=== PATIENT | male | born 1950 | race African-American/Black ===

== ENCOUNTER 2023-12-14 17:20 | Emergency (ER) | payer OTHER, MEDICAID ==
[~2023-12-14] VITALS: Ht 177.8 cm; Wt 65.3 kg
[2023-12-14 17:35] VITALS: BP 118/66; TEMP 97.9; O2SAT 98
[2023-12-14] MEDS ORDERED: MORPHINE SULFATE INJ 4 MG/ML DISP.SYRIN ONE (17:47)
[2023-12-14] MEDS ORDERED: ONDANSETRON HCL/PF 4 MG/2 ML VIAL ONE (17:47)
[2023-12-14 18:00] LABS: EOSINOPHILS # (AUTO) 0.1 K/uL (0.0-0.7); EOSINOPHILS % (AUTO) 2.7 % (0.0-6.0); HEMATOCRIT 33 % (39-51); HEMOGLOBIN 11.4 g/dL (13.5-17.5); LYMPHOCYTES # (AUTO) 0.5 K/uL (0.8-4.8); LYMPHOCYTES % (AUTO) 16.8 % (20.0-44.0); MEAN CORPUSCULAR HEMOGLOBIN 32 PG (26.0-33.0); MEAN CORPUSCULAR HGB CONC 35 g/dl (31.0-36.0); MEAN CORPUSCULAR VOLUME 92 fL (80-96); MONOCYTES # (AUTO) 0.3 K/uL (0.1-1.30); MONOCYTES % (AUTO) 11.2 % (2.0-12.0); NEUTROPHILS % (AUTO) 68.3 % (43.0-81.0); PLATELET COUNT (AUTO) 176 K/uL (150-450); RED BLOOD CELL COUNT(AUTO) 3.55 MIL/uL (4.5-6.0); WHITE BLOOD COUNT (AUTO) 2.9 K/uL (4.3-11.0)
[2023-12-14] MEDS: MORPHINE SULFATE INJ 2 MG/ML DISP.SYRIN IV ONE (18:00)
[2023-12-14] MEDS: ONDANSETRON HCL/PF 4 MG/2 ML VIAL IVP ONE (18:01)
[2023-12-14 18:07] LABS: CALCIUM, SERUM 9.7 mg/dL (8.5-10.1); CARBON DIOXIDE 23 mmol/L (21-32); CHLORIDE 104 mmol/L (98-107); CREATININE 1.8 mg/dL (0.6-1.3); GLUCOSE 106 mg/dL (74-106); POTASSIUM 4.7 mmol/L (3.5-5.1); SODIUM SERUM 140 mmol/L (136-145); UREA NITROGEN, BLOOD 36 mg/dL (7-18)
[2023-12-14 18:13] LABS: ALANINE AMINOTRANSFERASE 19 U/L (12-78); ALBUMIN 3.6 g/dL (3.4-5.0); ALKALINE PHOSPHATASE 43 U/L (46-116); ASPARTATE AMINOTRANSFERASE 38 U/L (15-37); BILIRUBIN,DIRECT 0.6 mg/dL (0.0-0.2); BILIRUBIN,TOTAL 1.2 mg/dL (0.2-1.0); LIPASE 37 U/L (16-77); TOTAL PROTEIN, SERUM 6.4 g/dL (6.4-8.2)
[2023-12-14 18:44] LABS: INR 1.3 (0.91-1.10); PARTIAL THROMBOPLASTIN TIME 30.2 SEC (24.3-34.3); PROTHROMBIN TIME 13.5 SECS (9.2-11.1)
[2023-12-14 20:34] LABS: APPEARANCE,URINE CLEAR (CLEAR); BILIRUBIN,URINE NEGATIVE (NEGATIVE); BLOOD, URINE NEGATIVE Ery/uL (NEGATIVE); COLOR,URINE YELLOW (YELLOW); KETONES,URINE NEGATIVE (NEGATIVE); LEUKOCYTE ESTERASE ,URINE 1+ (NEGATIVE); NITRITE, URINE NEGATIVE (NEGATIVE); PH,URINE 5.5 (5.0-8.0); PROTEIN,URINE NEGATIVE (NEGATIVE); UGLUCOSE NEGATIVE (NEGATIVE); UROBILINOGEN,URINE 0.2 EU/dL (0.2)
[2023-12-14 20:43] LABS: ADD URINE CULTURE YES; BACTERIA,URINE 1+ /HPF (None Seen); RBC,URINE 0-2 /HPF (0-2); SQUAMOUS EPITHELIAL CELL,UR Few /HPF (None Seen); WBC,URINE 21-50 /HPF (0-3); YEAST,URINE Few /HPF (None Seen)
== END 2023-12-14 21:07 | disposition short-term general hospital (02) ==
LOC: ER 17:24
DX: K70.31 Alcoholic cirrhosis of liver with ascites (principal); I10 Essential (primary) hypertension; Z59.01 Sheltered homelessness
CPT/HCPCS: 99285; 74176; 96374; 96375; 85025; 80048; 87086; 83690; 80076; 81001; 36415; 85730; J2270; J2405

== ENCOUNTER 2025-01-09 18:58 | Emergency (ER) | payer MEDICARE, OTHER ==
[~2025-01-09] VITALS: Ht 177.8 cm; Wt 68.5 kg
[2025-01-09 19:28] LABS: PLATELET COUNT (AUTO) 193 K/uL (150-450); RED BLOOD CELL COUNT(AUTO) 3.14 MIL/uL (4.5-6.0); RED CELL DISTRIBUTION WIDTH 14.8 % (11.5-15.0); WHITE BLOOD COUNT (AUTO) 6.5 K/uL (4.3-11.0)
[2025-01-09 19:35] VITALS: TEMP 98.1
[2025-01-09 19:42] LABS: SERUM AMMONIA 25 umol/L (11-32)
[2025-01-09 19:43] LABS: CALCIUM, SERUM 8.1 mg/dL (8.5-10.1); CREATININE 5.3 mg/dL (0.6-1.3); SODIUM SERUM 135 mmol/L (136-145)
[2025-01-09 19:45] LABS: INR 1.27 (0.91-1.10); UREA NITROGEN, BLOOD 85 mg/dL (7-18)
[2025-01-09 19:48] LABS: LACTIC ACID 1.2 mmol/L (0.4-2.0)
[2025-01-09 19:55] LABS: ASPARTATE AMINOTRANSFERASE 66 U/L (15-37); TOTAL PROTEIN, SERUM 6.4 g/dL (6.4-8.2)
[2025-01-09 19:56] LABS: ALCOHOL, BLOOD < 3 mg/dL (0-10)
[2025-01-09 21:26] VITALS: BP 120/81; O2SAT 96
[2025-01-09 21:41] LABS: APPEARANCE,URINE CLEAR (CLEAR); BLOOD, URINE NEGATIVE Ery/uL (NEGATIVE); LEUKOCYTE ESTERASE ,URINE TRACE (NEGATIVE); NITRITE, URINE NEGATIVE (NEGATIVE); UGLUCOSE NEGATIVE (NEGATIVE)
[2025-01-09 21:53] LABS: ADD URINE CULTURE YES; SQUAMOUS EPITHELIAL CELL,UR None Seen /HPF (None Seen)
[2025-01-09 21:57] LABS: YEAST,URINE Many /HPF (None Seen)
[2025-01-09 22:04] LABS: AMPHETAMINE, URINE NEGATIVE (NEGATIVE); BARBITURATE, URINE NEGATIVE (NEGATIVE); BENZODIAZEPINE, URINE NEGATIVE (NEGATIVE); CANNABINOID, URINE NEGATIVE (NEGATIVE); COCCAINE, URINE NEGATIVE (NEGATIVE); OPIATE, URINE NEGATIVE (NEGATIVE)
== END 2025-01-09 23:22 | disposition short-term general hospital (02) ==
LOC: ER 19:06
DX: R18.8 Other ascites (principal); N17.9 Acute kidney failure, unspecified; I10 Essential (primary) hypertension; R07.9 Chest pain, unspecified
CPT/HCPCS: 36415; 70450-TC; 71045-TC; 80048-TC; 80076-TC; 81001; 82140-TC; 83605-TC; 84443-TC; 84484-TC; 85025-TC; 85730-TC; 87086-TC; G0480

== ENCOUNTER 2025-03-09 14:35 | Inpatient (IN) | payer MEDICARE, OTHER ==
[~2025-03-09] VITALS: Ht 179.1 cm; Wt 64.9 kg
[2025-03-09] MEDS ORDERED: MORPHINE SULFATE INJ 2 MG/ML DISP.SYRIN ONE (15:18)
[2025-03-09] MEDS: MORPHINE SULFATE INJ 2 MG/ML DISP.SYRIN IV ONE (15:21)
[2025-03-09 15:26] LABS: CALCIUM, SERUM 8.0 mg/dL (8.5-10.1); CREATININE 3.5 mg/dL (0.6-1.3); SODIUM SERUM 135.0 mmol/L (136-145); UREA NITROGEN, BLOOD 52.0 mg/dL (7-18)
[2025-03-09 15:30] LABS: RED BLOOD CELL COUNT(AUTO) 4.03 MIL/uL (4.5-6.0); RED CELL DISTRIBUTION WIDTH 17.0 % (11.5-15.0); WHITE BLOOD COUNT (AUTO) 8.8 K/uL (4.3-11.0)
[2025-03-09 15:32] LABS: PLATELET COUNT (AUTO) 135 K/uL (150-450)
[2025-03-09 15:33] LABS: ASPARTATE AMINOTRANSFERASE 87.0 U/L (15-37); TOTAL PROTEIN, SERUM 6.1 g/dL (6.4-8.2)
[2025-03-09 15:35] LABS: INR 1.1 (0.91-1.10)
[2025-03-09] MEDS ORDERED: GABA300C PO (15:53)
[2025-03-09] MEDS ORDERED: POLY17PO4 PO (15:53)
[2025-03-09] MEDS ORDERED: ACET325T53 PO (15:53)
[2025-03-09] MEDS ORDERED: TAMS-12 PO (15:53)
[2025-03-09] MEDS ORDERED: LIDO30JE4 TP (15:53)
[2025-03-09] MEDS ORDERED: HYDR-4209 PO (15:53)
[2025-03-09] MEDS ORDERED: NA P133E RC (15:53)
[2025-03-09] MEDS ORDERED: MAGN400O6 PO (15:53)
[2025-03-09] MEDS ORDERED: MIDO10TA PO (15:53)
[2025-03-09] MEDS ORDERED: BISA10SU11 RC (15:53)
[2025-03-09] MEDS ORDERED: hydrALAZINE HCL IV 20 MG VIAL IV PRN (16:00)
[2025-03-09] MEDS ORDERED: LIDOCAINE 2% JEL 5 ML TUBE TP PRN (21:00)
[2025-03-09] MEDS ORDERED: BISACODYL SUPP (10 MG) 10 MG/SUPP.RECT SUPP.RECT RC PRN (21:00)
[2025-03-09] MEDS: HEPARIN SODIUM, PORCINE 5000 UNITS/1 ML VIAL SQ SCH (21:42)
[2025-03-09] MEDS: TAMSULOSIN 0.4 MG CAP.SR.24H PO SCH (21:42)
[2025-03-09] MEDS: MORPHINE SULFATE INJ 2 MG/ML DISP.SYRIN IV PRN (22:34)
[2025-03-10 04:00] VITALS: BP 105/87; TEMP 97.5; O2SAT 98
[2025-03-10 06:24] LABS: PLATELET COUNT (AUTO) 109 K/uL (150-450); RED BLOOD CELL COUNT(AUTO) 3.57 MIL/uL (4.5-6.0); RED CELL DISTRIBUTION WIDTH 16.9 % (11.5-15.0); WHITE BLOOD COUNT (AUTO) 7.9 K/uL (4.3-11.0)
[2025-03-10 06:30] LABS: ASPARTATE AMINOTRANSFERASE 66.0 U/L (15-37); CALCIUM, SERUM 7.6 mg/dL (8.5-10.1); CREATININE 3.7 mg/dL (0.6-1.3); PHOSPHORUS 4.7 mg/dL (2.5-4.9); SODIUM SERUM 133.0 mmol/L (136-145); TOTAL PROTEIN, SERUM 5.5 g/dL (6.4-8.2); UREA NITROGEN, BLOOD 52.0 mg/dL (7-18)
[2025-03-10] MEDS: GABAPENTIN 300 MG CAPSULE PO SCH (08:18)
[2025-03-10] MEDS: POLYETHYLENE GLYCOL 3350 17 GM POWD.PACK PO SCH (08:18)
[2025-03-10] MEDS: MIDODRINE HCL (5MG) 5 MG TABLET PO SCH (08:19)
[2025-03-10 12:00] VITALS: BP 119/86; TEMP 98.6; O2SAT 98
[2025-03-10 13:20] LABS: EOSINOPHILS % (MANUAL) 2 % (0-4); LYMPHOCYTES % (MANUAL) 9 % (16-48); MONOCYTES % (MANUAL) 5 % (0-11.0); NEUTROPHILS % (MANUAL) 84 (42-76); PLATELET ESTIMATE DECREASED
[2025-03-10 20:00] VITALS: BP 116/87; TEMP 97.9; O2SAT 99
[2025-03-10] MEDS: ACETAMINOPHEN 325 MG TABLET PO PRN (21:42)
[2025-03-11 04:00] VITALS: BP 120/79; TEMP 98; O2SAT 97
[2025-03-11 08:00] VITALS: BP 112/74; TEMP 100; O2SAT 96
[2025-03-11] MEDS ORDERED: LIDOCAINE 5% OINT 35.44 GM TUBE TP PRN (10:30)
[2025-03-11] MEDS: ALBUMIN 25% 25 GM in PREMIX 1 EA IV PRN (15:59)
[2025-03-11] MEDS: LIDOCAINE 2% JEL UROJET 10 ML MM PRN (19:25)
[2025-03-11 20:00] VITALS: BP 90/53; TEMP 99; O2SAT 98
[2025-03-12 03:07] LABS: HEPATITIS B SURFACE AB (QUAL) Non Reactive (.)
[2025-03-12 04:00] VITALS: BP 92/58; TEMP 99.5; O2SAT 100
[2025-03-12 06:42] LABS: CALCIUM, SERUM 7.3 mg/dL (8.5-10.1); CREATININE 3.6 mg/dL (0.6-1.3); SODIUM SERUM 133.0 mmol/L (136-145); UREA NITROGEN, BLOOD 41.0 mg/dL (7-18)
[2025-03-12 08:00] VITALS: BP 85/60; TEMP 98.8; O2SAT 97
[2025-03-12 16:00] VITALS: BP 94/56; TEMP 98.2; O2SAT 96
[2025-03-12 20:00] VITALS: BP 96/69; TEMP 98.4; O2SAT 99
[2025-03-13] MEDS: SIMETHICONE 80 MG TAB.CHEW PO PRN (02:37)
[2025-03-13 04:00] VITALS: BP 92/65; TEMP 98.1; O2SAT 98
[2025-03-13 16:00] VITALS: BP 76/55; TEMP 97.5; O2SAT 97
[2025-03-13] MEDS: MAG HYDROX/AL HYDROX/SIMETH 30 ML UDC PO ONE (17:06)
[2025-03-13 17:47] VITALS: BP 80/59
[2025-03-13 20:00] VITALS: BP 77/62; TEMP 98.4
[2025-03-13 21:30] VITALS: BP 90/60
[2025-03-14] VITALS (7 sets, daily range): BP systolic 68–115; BP diastolic 42–69; TEMP 97.6–99; O2SAT 97
[2025-03-14] MEDS: ONDANSETRON HCL/PF 4 MG/2 ML VIAL IVP PRN (10:23)
[2025-03-14] MEDS: ALBUMIN 25% 12.5 GM in PREMIX 1 EA IV ONE (14:25)
[2025-03-15 04:00] VITALS: BP 79/58; TEMP 98.2; O2SAT 99
[2025-03-15] MEDS: ALBUMIN 25% 12.5 GM in PREMIX 1 EA IV ONE (12:12)
[2025-03-15 12:16] VITALS: BP 107/62
== END 2025-03-15 16:12 | DRG 432 ==
LOC: ER 15:10 → MEDSG1 19:06
PROVIDERS: ADMIT Internal Medicine; ATTEND Nurse Practitioner Acute Care
PROC: 5A1D70Z Performance of Urinary Filtration, Intermittent, Less than 6 Hours Per Day (ICD-10-PCS; principal; 2025-03-10)
PROC: 0W9G3ZZ Drainage of Peritoneal Cavity, Percutaneous Approach (ICD-10-PCS; 2025-03-12)
DX: K74.60 Unspecified cirrhosis of liver (principal); N18.6 End stage renal disease; I12.0 Hypertensive chronic kidney disease with stage 5 chronic kidney disease or end stage renal disease; R18.8 Other ascites; E44.1 Mild protein-calorie malnutrition; E87.1 Hypo-osmolality and hyponatremia; D69.6 Thrombocytopenia, unspecified; Z99.2 Dependence on renal dialysis; E78.5 Hyperlipidemia, unspecified; I34.0 Nonrheumatic mitral (valve) insufficiency; N40.0 Benign prostatic hyperplasia without lower urinary tract symptoms; D63.8 Anemia in other chronic diseases classified elsewhere; E88.09 Other disorders of plasma-protein metabolism, not elsewhere classified; Z79.899 Other long term (current) drug therapy
CPT/HCPCS: 36415; 49083; 76700-TC; 80048-TC; 80053-TC; 80076-TC; 83735-TC; 84100-TC; 85025-TC; 85027-TC; 85730-TC; 86706; 87081-TC; 87340; 90935-TC; A4216; A4223; A6253; A6254; A6403; G0378; J1644; J2270; J2405; J3490; J7030; J7050; P9047; Q0163

== ENCOUNTER 2025-03-24 09:53 | Inpatient (IN) | payer MEDICARE, OTHER ==
[~2025-03-24] VITALS: Ht 179.1 cm; Wt 60.0 kg
[2025-03-24] VITALS (28 sets, daily range): BP systolic 84–134; BP diastolic 52–90; TEMP 97.7–98; O2SAT 97–100
[2025-03-24] MEDS: DOCUSATE SODIUM 100 MG CAPSULE PO SCH (01:00)
[~2025-03-24 09:53] MED LIST: ACET325T53 PO; BISA10SU11 RC; GABA300C PO; HYDR-4209 PO; LIDO30JE4 TP; MAGN400O6 PO; MIDO10TA PO; NA P133E RC; POLY17PO4 PO; TAMS-12 PO
[2025-03-24] MEDS ORDERED: ONDA-97 PO (10:17)
[2025-03-24] MEDS ORDERED: MIDO10TA PO (10:17)
[2025-03-24] MEDS ORDERED: HEPA50008 SQ (10:17)
[2025-03-24] MEDS: IV NS 0.9% 1,000 ML BAG IV ONE (10:48)
[2025-03-24 10:52] LABS: PLATELET COUNT (AUTO) 137 K/uL (150-450); RED BLOOD CELL COUNT(AUTO) 4.00 MIL/uL (4.5-6.0); RED CELL DISTRIBUTION WIDTH 16.0 % (11.5-15.0); WHITE BLOOD COUNT (AUTO) 17.2 K/uL (4.3-11.0)
[2025-03-24 11:03] LABS: CALCIUM, SERUM 7.8 mg/dL (8.5-10.1); CREATININE 2.9 mg/dL (0.6-1.3); INR 1.26 (0.91-1.10); SERUM AMMONIA 1 umol/L (11-32); SODIUM SERUM 129 mmol/L (136-145); UREA NITROGEN, BLOOD 40 mg/dL (7-18)
[2025-03-24 11:10] LABS: ASPARTATE AMINOTRANSFERASE 39 U/L (15-37); TOTAL PROTEIN, SERUM 5.6 g/dL (6.4-8.2)
[2025-03-24 11:22] LABS: LACTIC ACID 3.0 mmol/L (0.4-2.0)
[2025-03-24] MEDS: PIPERACILLIN /TAZOBACTAM 3.375 G in IV D5W 50 ML IV ONE (11:23)
[2025-03-24 12:06] LABS: APPEARANCE,URINE TURBID (CLEAR); BLOOD, URINE 3+ Ery/uL (NEGATIVE); LEUKOCYTE ESTERASE ,URINE 3+ (NEGATIVE); NITRITE, URINE NEGATIVE (NEGATIVE); UGLUCOSE NEGATIVE (NEGATIVE)
[2025-03-24 12:10] LABS: ADD URINE CULTURE YES; SQUAMOUS EPITHELIAL CELL,UR Rare /HPF (None Seen)
[2025-03-24] MEDS ORDERED: ONDANSETRON HCL/PF 4 MG/2 ML VIAL IVP PRN (13:30)
[2025-03-24] MEDS ORDERED: NOREPINEPHRINE 8MG/250ML RTU 250 ML IV ONE (14:12)
[2025-03-24] MEDS: NOREPINEPHRINE 8 MG in IV NS 0.9% 250 ML IV ONE (14:24)
[2025-03-24] MEDS: CEFEPIME 2 GM in IV D5W 100 ML IV SCH (15:05)
[2025-03-24] MEDS: ALBUMIN 25% 25 GM in PREMIX 1 EA IV SCH (15:35)
[2025-03-24] MEDS: NOREPINEPHRINE 8 MG in IV NS 0.9% 242 ML IV PRN (18:03)
[2025-03-25] VITALS (106 sets, daily range): BP systolic 67–112; BP diastolic 47–81; TEMP 97.8–99.6; O2SAT 93–100
[2025-03-25] MEDS: PHENYLEPHRINE 50 MG in IV NS 0.9% 245 ML IV PRN (00:15)
[2025-03-25] MEDS: PHENYLEPHRINE 10 MG/ML VIAL ONE (00:16)
[2025-03-25] MEDS: SENNOSIDES 8.6 MG TABLET PO SCH (01:03)
[2025-03-25 05:17] LABS: PLATELET COUNT (AUTO) 173 K/uL (150-450); RED BLOOD CELL COUNT(AUTO) 3.43 MIL/uL (4.5-6.0); RED CELL DISTRIBUTION WIDTH 15.3 % (11.5-15.0); WHITE BLOOD COUNT (AUTO) 18.1 K/uL (4.3-11.0)
[2025-03-25 05:33] LABS: CALCIUM, SERUM 7.9 mg/dL (8.5-10.1); CREATININE 3.4 mg/dL (0.6-1.3); PHOSPHORUS 4.3 mg/dL (2.5-4.9); SODIUM SERUM 132.0 mmol/L (136-145); UREA NITROGEN, BLOOD 48.0 mg/dL (7-18)
[2025-03-25 05:56] LABS: LACTIC ACID 3.1 mmol/L (0.4-2.0)
[2025-03-25] MEDS ORDERED: POLYETHYLENE GLYCOL 3350 17 GM POWD.PACK PO PRN (09:00)
[2025-03-25] MEDS: GABAPENTIN 300 MG CAPSULE PO SCH (09:31)
[2025-03-25] MEDS: THERAHONEY GEL 1.5 OZ TUBE TP SCH (09:31)
[2025-03-25] MEDS: MIDODRINE HCL (5MG) 5 MG TABLET PO SCH (12:40)
[2025-03-25 15:16] LABS: HIV-1/2 ANTIBODY NON REACTIVE (NONREACTIVE)
[2025-03-25] MEDS: ALBUMIN 25% 50 GM in PREMIX 1 EA IV ONE (15:26)
[2025-03-25] MEDS: TRAMADOL HCL 50 MG TABLET PO PRN (15:36)
[2025-03-25] MEDS: LACTULOSE 10 G/15 ML UDC (PYXIS) PO SCH (16:10)
[2025-03-25] MEDS: HYDROMORPHONE 1 MG/1 ML DISP.SYRIN IV ONE (17:11)
[2025-03-25] MEDS: TAMSULOSIN 0.4 MG CAP.SR.24H PO SCH (21:44)
[2025-03-26] VITALS (96 sets, daily range): BP systolic 57–126; BP diastolic 44–92; TEMP 98–99.8; O2SAT 92–100
[2025-03-26 07:50] LABS: PLATELET COUNT (AUTO) 131 K/uL (150-450); RED BLOOD CELL COUNT(AUTO) 3.79 MIL/uL (4.5-6.0); RED CELL DISTRIBUTION WIDTH 15.2 % (11.5-15.0); WHITE BLOOD COUNT (AUTO) 18.9 K/uL (4.3-11.0)
[2025-03-26 07:55] LABS: ASPARTATE AMINOTRANSFERASE 26.0 U/L (15-37); CALCIUM, SERUM 7.9 mg/dL (8.5-10.1); CREATININE 1.6 mg/dL (0.6-1.3); SODIUM SERUM 133.0 mmol/L (136-145); TOTAL PROTEIN, SERUM 5.7 g/dL (6.4-8.2); UREA NITROGEN, BLOOD 17.0 mg/dL (7-18)
[2025-03-26 07:56] LABS: LACTIC ACID 1.3 mmol/L (0.4-2.0)
[2025-03-26 07:57] LABS: SERUM AMMONIA 49.0 umol/L (11-32)
[2025-03-26] MEDS: HYDROCORTISONE SOD SUCCINATE 100 MG/2 ML VIAL IV SCH (12:35)
[2025-03-26] MEDS: RIFAXIMIN 550 MG TABLET PO SCH (17:51)
[2025-03-26] MEDS: MEROPENEM 1 G in IV NS 0.9% 100 ML IV SCH (17:54)
[2025-03-27] VITALS (92 sets, daily range): BP systolic 69–128; BP diastolic 51–94; TEMP 98.3–98.8; O2SAT 78–100
[2025-03-27 04:08] LABS: PLATELET COUNT (AUTO) 118 K/uL (150-450); RED BLOOD CELL COUNT(AUTO) 3.49 MIL/uL (4.5-6.0); RED CELL DISTRIBUTION WIDTH 15.7 % (11.5-15.0); WHITE BLOOD COUNT (AUTO) 18.2 K/uL (4.3-11.0)
[2025-03-27 04:17] LABS: CALCIUM, SERUM 7.9 mg/dL (8.5-10.1); CREATININE 2.7 mg/dL (0.6-1.3); SODIUM SERUM 136 mmol/L (136-145); UREA NITROGEN, BLOOD 34 mg/dL (7-18)
[2025-03-27 05:27] LABS: LYMPHOCYTES % (MANUAL) 1 % (16-48); MONOCYTES % (MANUAL) 10 % (0-11.0); NEUTROPHILS % (MANUAL) 89 (42-76); PLATELET ESTIMATE ADEQUATE
[2025-03-27] MEDS: HYDROCORTISONE SOD SUCCINATE 100 MG/2 ML VIAL IV SCH (10:50)
[2025-03-27] MEDS: NEPRO VAN 237 ML CAN PO SCH (16:02)
[2025-03-27] MEDS: ALBUMIN 25% 25 GM in PREMIX 1 EA IV PRN (18:40)
[2025-03-28] VITALS (72 sets, daily range): BP systolic 74–123; BP diastolic 51–99; TEMP 97.6–98; O2SAT 75–100
[2025-03-28 04:37] LABS: CALCIUM, SERUM 8.3 mg/dL (8.5-10.1); CREATININE 2.1 mg/dL (0.6-1.3); SODIUM SERUM 138.0 mmol/L (136-145); UREA NITROGEN, BLOOD 27.0 mg/dL (7-18)
[2025-03-28 04:49] LABS: PLATELET COUNT (AUTO) 85 K/uL (150-450); RED BLOOD CELL COUNT(AUTO) 3.35 MIL/uL (4.5-6.0); RED CELL DISTRIBUTION WIDTH 15.0 % (11.5-15.0); WHITE BLOOD COUNT (AUTO) 21.5 K/uL (4.3-11.0)
[2025-03-28 05:18] LABS: LYMPHOCYTES % (MANUAL) 1 % (16-48); MONOCYTES % (MANUAL) 3 % (0-11.0); NEUTROPHILS % (MANUAL) 96 (42-76)
[2025-03-28 05:19] LABS: PLATELET ESTIMATE DECREASED
[2025-03-28] MEDS: HYDROCORTISONE SOD SUCCINATE 100 MG/2 ML VIAL IV SCH (20:15)
[2025-03-29] VITALS (92 sets, daily range): BP systolic 77–119; BP diastolic 52–83; TEMP 97.7–98; O2SAT 81–100
[2025-03-29 04:57] LABS: CALCIUM, SERUM 8.0 mg/dL (8.5-10.1); CREATININE 2.7 mg/dL (0.6-1.3); PLATELET COUNT (AUTO) 106 K/uL (150-450); RED BLOOD CELL COUNT(AUTO) 3.27 MIL/uL (4.5-6.0); RED CELL DISTRIBUTION WIDTH 15.2 % (11.5-15.0); SODIUM SERUM 138.0 mmol/L (136-145); UREA NITROGEN, BLOOD 44.0 mg/dL (7-18); WHITE BLOOD COUNT (AUTO) 23.9 K/uL (4.3-11.0)
[2025-03-29 05:36] LABS: LYMPHOCYTES % (MANUAL) 2 % (16-48); MONOCYTES % (MANUAL) 8 % (0-11.0); NEUTROPHILS % (MANUAL) 90 (42-76); PLATELET ESTIMATE DECREASED
[2025-03-29 11:09] LABS: *HCV QUANTITATION 1480000 IU/mL (.); *HCV log10 6.170 (.)
[2025-03-30] VITALS (90 sets, daily range): BP systolic 75–112; BP diastolic 52–80; TEMP 97–98; O2SAT 93–100
[2025-03-30 05:00] LABS: PLATELET COUNT (AUTO) 92 K/uL (150-450); RED BLOOD CELL COUNT(AUTO) 3.09 MIL/uL (4.5-6.0); RED CELL DISTRIBUTION WIDTH 15.1 % (11.5-15.0); WHITE BLOOD COUNT (AUTO) 20.7 K/uL (4.3-11.0)
[2025-03-30 05:14] LABS: CALCIUM, SERUM 8.3 mg/dL (8.5-10.1); CREATININE 1.9 mg/dL (0.6-1.3); SODIUM SERUM 142.0 mmol/L (136-145); UREA NITROGEN, BLOOD 30.0 mg/dL (7-18)
[2025-03-30] MEDS: POTASSIUM CL. PREMIX PERIPHER. 50 ML IV SCH (06:20)
[2025-03-30 06:32] LABS: LYMPHOCYTES % (MANUAL) 3 % (16-48); MONOCYTES % (MANUAL) 7 % (0-11.0); NEUTROPHILS % (MANUAL) 90 (42-76); PLATELET ESTIMATE DECREASED
[2025-03-30] MEDS: HYDROCORTISONE SOD SUCCINATE 100 MG/2 ML VIAL IV SCH (09:23)
[2025-03-30] MEDS: POTASSIUM CHLORIDE 20 MEQ TAB.PRT.SR PO SCH (10:20)
[2025-03-30 16:36] LABS: APPEARANCE,URINE CLEAR (CLEAR); BLOOD, URINE 2+ Ery/uL (NEGATIVE); LEUKOCYTE ESTERASE ,URINE 1+ (NEGATIVE); NITRITE, URINE NEGATIVE (NEGATIVE); UGLUCOSE NEGATIVE (NEGATIVE)
[2025-03-30 17:22] LABS: ADD URINE CULTURE YES; YEAST,URINE Moderate /HPF (None Seen)
[2025-03-31] VITALS (28 sets, daily range): BP systolic 92–117; BP diastolic 66–83; TEMP 97–97.6; O2SAT 96–100
[2025-03-31 05:10] LABS: ASPARTATE AMINOTRANSFERASE 69.0 U/L (15-37); CALCIUM, SERUM 8.4 mg/dL (8.5-10.1); CREATININE 2.8 mg/dL (0.6-1.3); PHOSPHORUS 3.8 mg/dL (2.5-4.9); SODIUM SERUM 139.0 mmol/L (136-145); TOTAL PROTEIN, SERUM 5.1 g/dL (6.4-8.2); UREA NITROGEN, BLOOD 44.0 mg/dL (7-18)
[2025-03-31 05:24] LABS: WHITE BLOOD COUNT (AUTO) 18.4 K/uL (4.3-11.0)
[2025-03-31 05:37] LABS: PLATELET COUNT (AUTO) 102 K/uL (150-450); RED BLOOD CELL COUNT(AUTO) 3.27 MIL/uL (4.5-6.0); RED CELL DISTRIBUTION WIDTH 15.3 % (11.5-15.0)
[2025-03-31] MEDS: ALBUMIN 25% 50 GM in PREMIX 1 EA IV ONE (15:04)
[2025-03-31] MEDS: ALBUMIN 25% 12.5 GM/50 ML BOTTLE IV STA (15:05)
[2025-03-31 22:48] LABS: PROTEIN, BODY FLUID 2.2 G/DL
[2025-04-01] VITALS (9 sets, daily range): BP systolic 80–123; BP diastolic 58–78; TEMP 97.5–98.2; O2SAT 97–100
[2025-04-01 02:01] LABS: WBC, BODY FLUID 66 /cu. mm. (0-200)
[2025-04-01 02:11] LABS: TOTAL VOLUME,BODY FLUID 7200 mL
[2025-04-01 02:28] LABS: APPEARANCE,SPUN,BODY FLUID CLEAR (CLEAR)
[2025-04-01 06:43] LABS: MONOCYTES,BODY FLUID 3 %
[2025-04-01 06:46] LABS: PLATELET COUNT (AUTO) 104 K/uL (150-450); RED BLOOD CELL COUNT(AUTO) 3.09 MIL/uL (4.5-6.0); RED CELL DISTRIBUTION WIDTH 15.4 % (11.5-15.0); WHITE BLOOD COUNT (AUTO) 12.5 K/uL (4.3-11.0)
[2025-04-01 07:22] LABS: CALCIUM, SERUM 8.6 mg/dL (8.5-10.1); CREATININE 2.1 mg/dL (0.6-1.3); SODIUM SERUM 144.0 mmol/L (136-145); UREA NITROGEN, BLOOD 32.0 mg/dL (7-18)
[2025-04-01] MEDS: Z GUARD REMEDY 4 OZ OINT TP PRN (09:07)
[2025-04-01] MEDS: FLUCONAZOLE (100 MG) 100 MG TABLET PO SCH (09:08)
[2025-04-02] VITALS: BP 112/75; TEMP 98; O2SAT 98
[2025-04-02 08:00] VITALS: BP 87/68; TEMP 98.1; O2SAT 98
[2025-04-02] MEDS: DIGOXIN INJ 0.5 MG/2 ML AMPUL IV SCH (09:39)
[2025-04-02 17:41] VITALS: BP 94/66; TEMP 98.2; O2SAT 97
[2025-04-02 19:33] LABS: PLATELET COUNT (AUTO) 88 K/uL (150-450); RED BLOOD CELL COUNT(AUTO) 3.00 MIL/uL (4.5-6.0); RED CELL DISTRIBUTION WIDTH 15.5 % (11.5-15.0); WHITE BLOOD COUNT (AUTO) 9.0 K/uL (4.3-11.0)
[2025-04-02 20:00] VITALS: BP 95/58; TEMP 98.2; O2SAT 99
[2025-04-02 21:13] LABS: EOSINOPHILS % (MANUAL) 1 % (0-4); LYMPHOCYTES % (MANUAL) 3 % (16-48); MONOCYTES % (MANUAL) 9 % (0-11.0); NEUTROPHILS % (MANUAL) 87 (42-76); PLATELET ESTIMATE DECREASED
[2025-04-03] MEDS: MIDODRINE HCL (5MG) 5 MG TABLET PO ONE (00:38)
[2025-04-03] MEDS: ALBUMIN 25% 12.5 GM/50 ML BOTTLE IV ONE (00:46)
[2025-04-03 02:15] VITALS: BP 94/70
[2025-04-03 08:00] VITALS: BP 87/62; TEMP 97.5; O2SAT 99
[2025-04-03] MEDS: LACTULOSE 20 G/30 ML UDC PO SCH (08:27)
[2025-04-03 12:07] VITALS: BP 80/59
[2025-04-03] MEDS: DIGOXIN 0.25 MG TABLET PO SCH (12:07)
== END 2025-04-03 15:44 | DRG 871 ==
LOC: ER 09:55 → ICU 16:11 → TELE 03-31 17:27 → MED 04-01 08:17
PROVIDERS: ADMIT Internal Medicine; ATTEND Nurse Practitioner Acute Care
PROC: 02HV33Z Insertion of Infusion Device into Superior Vena Cava, Percutaneous Approach (ICD-10-PCS; principal; 2025-03-24)
PROC: BF45ZZZ Ultrasonography of Liver (ICD-10-PCS; 2025-03-25)
PROC: 0W9G3ZZ Drainage of Peritoneal Cavity, Percutaneous Approach (ICD-10-PCS; 2025-03-25)
PROC: 5A1D70Z Performance of Urinary Filtration, Intermittent, Less than 6 Hours Per Day (ICD-10-PCS; 2025-03-25)
PROC: 0W9G3ZX Drainage of Peritoneal Cavity, Percutaneous Approach, Diagnostic (ICD-10-PCS; 2025-03-31)
PROC: BF45ZZZ Ultrasonography of Liver (ICD-10-PCS; 2025-03-31)
DX: A41.51 Sepsis due to Escherichia coli [E. coli] (principal); E43 Unspecified severe protein-calorie malnutrition; L89.153 Pressure ulcer of sacral region, stage 3; L89.223 Pressure ulcer of left hip, stage 3; L89.213 Pressure ulcer of right hip, stage 3; N18.6 End stage renal disease; R65.21 Severe sepsis with septic shock; I12.0 Hypertensive chronic kidney disease with stage 5 chronic kidney disease or end stage renal disease; E87.1 Hypo-osmolality and hyponatremia; R18.8 Other ascites; G93.40 Encephalopathy, unspecified; K76.6 Portal hypertension; E87.20 Acidosis, unspecified; R64 Cachexia; Z16.12 Extended spectrum beta lactamase (ESBL) resistance; B37.49 Other urogenital candidiasis; K74.60 Unspecified cirrhosis of liver; Z20.822 Contact with and (suspected) exposure to COVID-19; E78.5 Hyperlipidemia, unspecified; I34.0 Nonrheumatic mitral (valve) insufficiency; B18.2 Chronic viral hepatitis C; N40.0 Benign prostatic hyperplasia without lower urinary tract symptoms; Z79.899 Other long term (current) drug therapy; Z99.2 Dependence on renal dialysis; Z79.01 Long term (current) use of anticoagulants; Z90.49 Acquired absence of other specified parts of digestive tract; Z87.891 Personal history of nicotine dependence; K72.90 Hepatic failure, unspecified without coma; D69.6 Thrombocytopenia, unspecified; E88.09 Other disorders of plasma-protein metabolism, not elsewhere classified; K42.9 Umbilical hernia without obstruction or gangrene; K57.30 Diverticulosis of large intestine without perforation or abscess without bleeding; F32.A Depression, unspecified; D63.8 Anemia in other chronic diseases classified elsewhere; I48.0 Paroxysmal atrial fibrillation; L85.3 Xerosis cutis; L89.621 Pressure ulcer of left heel, stage 1; B96.89 Other specified bacterial agents as the cause of diseases classified elsewhere; L98.9 Disorder of the skin and subcutaneous tissue, unspecified
CPT/HCPCS: 36415; 36569; 49083; 71045-TC; 76705-TC; 80048-TC; 80053-TC; 80076-TC; 81001; 82105; 82140-TC; 82533; 82962-TC; 83605-TC; 83690-TC; 83735-TC; 84100-TC; 84484-TC; 85025-TC; 85027-TC; 85730-TC; 86803; 87040-TC; 87070-TC; 87081-TC; 87086-TC; 87186-TC; 87522; 87806; 88104-TC; 88305-TC; 88312-TC; 89051-TC; 90935-TC; 93307-TC; 97110-TC; 97116-TC; 97530-TC; 97535-TC; A4216; A4223; A6213; G0378; J0692; J1160; J1171; J1720; J2185; J2543; J3480; J7030; J7050; J7060; P9047

== ENCOUNTER 2025-04-19 19:56 | Inpatient (IN) | payer MEDICARE, OTHER ==
[~2025-04-19] VITALS: Ht 179.1 cm; Wt 61.2 kg
[~2025-04-19 19:56] MED LIST changes: +HEPA50008 SQ; -LIDO30JE4 TP; +ONDA-97 PO
[2025-04-19 22:00] LABS: PLATELET COUNT (AUTO) 151 K/uL (150-450); RED BLOOD CELL COUNT(AUTO) 3.14 MIL/uL (4.5-6.0); RED CELL DISTRIBUTION WIDTH 16.0 % (11.5-15.0); WHITE BLOOD COUNT (AUTO) 10.4 K/uL (4.3-11.0)
[2025-04-19 22:09] LABS: APPEARANCE,URINE TURBID (CLEAR); BLOOD, URINE 3+ Ery/uL (NEGATIVE); LEUKOCYTE ESTERASE ,URINE 3+ (NEGATIVE); NITRITE, URINE NEGATIVE (NEGATIVE); UGLUCOSE NEGATIVE (NEGATIVE)
[2025-04-19 22:14] LABS: INR 1.26 (0.91-1.10)
[2025-04-19 22:15] LABS: ADD URINE CULTURE YES
[2025-04-19 22:15] LABS: CALCIUM, SERUM 7.7 mg/dL (8.5-10.1); CREATININE 2.6 mg/dL (0.6-1.3); SODIUM SERUM 139 mmol/L (136-145); UREA NITROGEN, BLOOD 39 mg/dL (7-18)
[2025-04-19 22:16] LABS: SQUAMOUS EPITHELIAL CELL,UR Many /HPF (None Seen); YEAST,URINE Many /HPF (None Seen)
[2025-04-19 22:17] LABS: CALCIUM OXALATE CRYSTALS,UR Few /HPF (None Seen)
[2025-04-19 22:21] LABS: ASPARTATE AMINOTRANSFERASE 39 U/L (15-37); TOTAL PROTEIN, SERUM 5.6 g/dL (6.4-8.2)
[2025-04-19] MEDS ORDERED: LEVOFLOXACIN 750 MG /D5W 150ML 150 ML IV ONE (22:39)
[2025-04-19] MEDS: LEVOFLOXACIN 750 MG /D5W 150ML PIGGYBACK IV ONE (22:41)
[2025-04-19] MEDS ORDERED: ACETAMINOPHEN 325 MG TABLET PO PRN (23:00)
[2025-04-19] MEDS ORDERED: MAG HYDROX/AL HYDROX/SIMETH 30 ML UDC PO PRN (23:00)
[2025-04-19] MEDS ORDERED: Z GUARD REMEDY 4 OZ OINT TP PRN (23:00)
[2025-04-19] MEDS ORDERED: POLYETHYLENE GLYCOL 3350 17 GM POWD.PACK PO PRN (23:00)
[2025-04-19] MEDS ORDERED: ONDANSETRON HCL/PF 4 MG/2 ML VIAL IVP PRN (23:00)
[2025-04-19] MEDS ORDERED: HYDROCODONE/APAP 5/325MG TABLET PO PRN (23:00)
[2025-04-19] MEDS ORDERED: MAGNESIUM HYDROXIDE 30 ML UDC PO PRN (23:00)
[2025-04-20] VITALS (7 sets, daily range): BP systolic 84–130; BP diastolic 28–86; TEMP 97.3–98.4; O2SAT 97–100
[2025-04-20] MEDS ORDERED: MEROPENEM 500 MG VIAL IV ONE (02:29)
[2025-04-20] MEDS ORDERED: FUROSEMIDE 40 MG/4 ML VIAL ONE (03:02)
[2025-04-20] MEDS ORDERED: ALBUMIN 25% 50 ML IV ONE (03:07)
[2025-04-20] MEDS: FUROSEMIDE 40 MG/4 ML VIAL IV ONE (03:14)
[2025-04-20] MEDS: MEROPENEM 500 MG in IV NS 0.9% 50 ML IV ONE (03:14)
[2025-04-20] MEDS: ALBUMIN 25% 12.5 GM/50 ML BOTTLE IV ONE (03:15)
[2025-04-20] MEDS ORDERED: MEROPENEM 500 MG in IV NS 0.9% 50 ML IV SCH (05:00)
[2025-04-20 06:57] LABS: PLATELET COUNT (AUTO) 145 K/uL (150-450); RED BLOOD CELL COUNT(AUTO) 3.03 MIL/uL (4.5-6.0); RED CELL DISTRIBUTION WIDTH 15.9 % (11.5-15.0); WHITE BLOOD COUNT (AUTO) 7.5 K/uL (4.3-11.0)
[2025-04-20 07:20] LABS: ASPARTATE AMINOTRANSFERASE 33.0 U/L (15-37); CALCIUM, SERUM 7.8 mg/dL (8.5-10.1); CREATININE 2.6 mg/dL (0.6-1.3); PHOSPHORUS 3.7 mg/dL (2.5-4.9); SODIUM SERUM 140.0 mmol/L (136-145); TOTAL PROTEIN, SERUM 5.6 g/dL (6.4-8.2); UREA NITROGEN, BLOOD 39.0 mg/dL (7-18)
[2025-04-20 07:33] LABS: SERUM AMMONIA 13.0 umol/L (11-32)
[2025-04-20] MEDS: PANTOPRAZOLE 40 MG VIAL IV SCH (08:10)
[2025-04-20] MEDS: HEPARIN SODIUM, PORCINE 5000 UNITS/1 ML VIAL SQ SCH (09:00)
[2025-04-20] MEDS: LACTULOSE 10 G/15 ML UDC (PYXIS) PO SCH (09:08)
[2025-04-20] MEDS: GABAPENTIN 300 MG CAPSULE PO SCH (09:08)
[2025-04-20] MEDS: RIFAXIMIN 550 MG TABLET PO SCH (09:08)
[2025-04-20] MEDS: MIDODRINE HCL (5MG) 5 MG TABLET PO SCH (09:09)
[2025-04-20] MEDS ORDERED: ASCO500T10 PO (09:56)
[2025-04-20] MEDS ORDERED: MULT-754 PO (09:56)
[2025-04-20] MEDS ORDERED: NUT.237L67 PO (09:57)
[2025-04-20] MEDS ORDERED: AMIN30LI25 PO (09:57)
[2025-04-20] MEDS ORDERED: MELA5TAB PO (09:57)
[2025-04-20] MEDS: TAMSULOSIN 0.4 MG CAP.SR.24H PO SCH (22:53)
[2025-04-21] VITALS: BP 102/76; TEMP 98.1; O2SAT 100
[2025-04-21 00:17] VITALS: BP 102/76; TEMP 98.1; O2SAT 100
[2025-04-21] MEDS: BISACODYL SUPP (10 MG) 10 MG/SUPP.RECT SUPP.RECT RC PRN (01:01)
[2025-04-21] MEDS: LACTULOSE 10 G/15 ML UDC (PYXIS) PR ONE (01:30)
[2025-04-21] MEDS: MEROPENEM 500 MG in IV NS 0.9% 50 ML IV SCH (03:34)
[2025-04-21 04:00] VITALS: BP 101/66; TEMP 97.7; O2SAT 99
[2025-04-21 04:10] VITALS: BP 101/66; TEMP 97.7; O2SAT 99
[2025-04-21 07:49] LABS: PLATELET COUNT (AUTO) 123 K/uL (150-450); RED BLOOD CELL COUNT(AUTO) 2.95 MIL/uL (4.5-6.0); RED CELL DISTRIBUTION WIDTH 16.3 % (11.5-15.0); WHITE BLOOD COUNT (AUTO) 7.7 K/uL (4.3-11.0)
[2025-04-21 08:00] VITALS: BP_SYST 108; BP_SYST 91; BP_DIAS 63; BP_DIAS 74; TEMP 98; TEMP 98.2; O2SAT 96; O2SAT 99
[2025-04-21 08:22] LABS: CALCIUM, SERUM 7.8 mg/dL (8.5-10.1); CREATININE 2.4 mg/dL (0.6-1.3); PHOSPHORUS 3.5 mg/dL (2.5-4.9); SODIUM SERUM 139.0 mmol/L (136-145); UREA NITROGEN, BLOOD 30.0 mg/dL (7-18)
[2025-04-21 09:48] LABS: IRON, SERUM 15 ug/dl (50-175)
[2025-04-21 12:27] LABS: OCCULT BLOOD STOOL POSITIVE (NEGATIVE)
[2025-04-21 12:28] LABS: OCCULT BLOOD STOOL NEGATIVE (NEGATIVE)
[2025-04-21 12:28] LABS: OCCULT BLOOD STOOL NEGATIVE (NEGATIVE)
[2025-04-21] MEDS: ACETAMINOPHEN 325 MG TABLET PO PRN (14:08)
[2025-04-21] MEDS: EPOETIN ALFA (10,000 UNIT) 10,000 UNIT/ML VIAL SQ SCH (15:14)
[2025-04-21 20:00] VITALS: BP_SYST 86; BP_SYST 90; BP_DIAS 60; BP_DIAS 75; TEMP 97.9; O2SAT 98
[2025-04-21] MEDS: ALBUMIN 25% 12.5 GM in PREMIX 1 EA IV PRN (20:58)
[2025-04-22] VITALS (9 sets, daily range): BP systolic 87–114; BP diastolic 60–86; TEMP 97.3–98.2; O2SAT 96–100
[2025-04-22] MEDS: ALBUMIN 25% 12.5 GM in PREMIX 1 EA IV ONE (02:44)
[2025-04-22 07:10] LABS: PLATELET COUNT (AUTO) 143 K/uL (150-450); RED BLOOD CELL COUNT(AUTO) 3.17 MIL/uL (4.5-6.0); RED CELL DISTRIBUTION WIDTH 16.1 % (11.5-15.0); WHITE BLOOD COUNT (AUTO) 5.9 K/uL (4.3-11.0)
[2025-04-22 07:16] LABS: CALCIUM, SERUM 7.5 mg/dL (8.5-10.1); CREATININE 2.7 mg/dL (0.6-1.3); PHOSPHORUS 3.4 mg/dL (2.5-4.9); SODIUM SERUM 140.0 mmol/L (136-145); UREA NITROGEN, BLOOD 36.0 mg/dL (7-18)
[2025-04-22] MEDS: THERAHONEY GEL 1.5 OZ TUBE TP SCH (09:30)
[2025-04-23] VITALS: BP 91/72; TEMP 98.4; O2SAT 98
[2025-04-23 04:00] VITALS: BP 90/60; TEMP 98.8; O2SAT 98
[2025-04-23 08:00] VITALS: BP 88/68; TEMP 98.2; O2SAT 100
[2025-04-23] MEDS: PANTOPRAZOLE 40 MG TABLET.DR PO SCH (09:49)
[2025-04-23 17:17] VITALS: BP 98/75
== END 2025-04-23 18:53 | DRG 698 ==
LOC: ER 20:00 → MED 04-20 00:24 → TELE 04-20 01:30
PROVIDERS: ADMIT Nurse Practitioner Acute Care
PROC: 5A1D70Z Performance of Urinary Filtration, Intermittent, Less than 6 Hours Per Day (ICD-10-PCS; 2025-04-20)
PROC: 0W9G30Z Drainage of Peritoneal Cavity with Drainage Device, Percutaneous Approach (ICD-10-PCS; principal; 2025-04-21)
PROC: BF45ZZZ Ultrasonography of Liver (ICD-10-PCS; 2025-04-21)
DX: T83.511A Infection and inflammatory reaction due to indwelling urethral catheter, initial encounter (principal); E43 Unspecified severe protein-calorie malnutrition; N18.6 End stage renal disease; R18.8 Other ascites; I12.0 Hypertensive chronic kidney disease with stage 5 chronic kidney disease or end stage renal disease; R64 Cachexia; Z16.12 Extended spectrum beta lactamase (ESBL) resistance; Z68.1 Body mass index [BMI] 19.9 or less, adult; K74.60 Unspecified cirrhosis of liver; N39.0 Urinary tract infection, site not specified; I95.89 Other hypotension; Y84.6 Urinary catheterization as the cause of abnormal reaction of the patient, or of later complication, without mention of misadventure at the time of the procedure; Y92.129 Unspecified place in nursing home as the place of occurrence of the external cause; L89.122 Pressure ulcer of left upper back, stage 2; L89.152 Pressure ulcer of sacral region, stage 2; L98.9 Disorder of the skin and subcutaneous tissue, unspecified; N40.0 Benign prostatic hyperplasia without lower urinary tract symptoms; B96.20 Unspecified Escherichia coli [E. coli] as the cause of diseases classified elsewhere; D63.1 Anemia in chronic kidney disease; E78.5 Hyperlipidemia, unspecified; E87.70 Fluid overload, unspecified; E88.09 Other disorders of plasma-protein metabolism, not elsewhere classified; I34.0 Nonrheumatic mitral (valve) insufficiency; I48.0 Paroxysmal atrial fibrillation; I77.810 Thoracic aortic ectasia; K42.9 Umbilical hernia without obstruction or gangrene; W05.0XXA Fall from non-moving wheelchair, initial encounter; Y92.9 Unspecified place or not applicable; Z87.440 Personal history of urinary (tract) infections; Z79.899 Other long term (current) drug therapy; B19.20 Unspecified viral hepatitis C without hepatic coma; Z88.0 Allergy status to penicillin; Z99.2 Dependence on renal dialysis; F10.90 Alcohol use, unspecified, uncomplicated; Y90.9 Presence of alcohol in blood, level not specified; Z79.01 Long term (current) use of anticoagulants
CPT/HCPCS: 36415; 71045-TC; 75989; 80048-TC; 80053-TC; 80076-TC; 81001; 82140-TC; 82272-TC; 82607-TC; 82728-TC; 83540-TC; 83690-TC; 83735-TC; 84100-TC; 84484-TC; 85025-TC; 85730-TC; 86850-TC; 87040-TC; 87086-TC; 87186-TC; 90935-TC; A4216; A4223; G0378; J0885; J1644; J1938; J1956; J2185; J2470; J7030; J7050; P9047

== ENCOUNTER 2025-04-30 18:17 | Inpatient (IN) | payer MEDICARE, OTHER ==
[~2025-04-30] VITALS: Ht 172.7 cm; Wt 55.8 kg
[~2025-04-30 18:17] MED LIST changes: +AMIN30LI25 PO; +ASCO500T10 PO; +ERTA1VIA4 IV; -HEPA50008 SQ; -HYDR-4209 PO; +MELA5TAB PO; +MULT-754 PO; +NUT.237L67 PO
[2025-04-30] MEDS ORDERED: MIDODRINE HCL (5MG) 5 MG TABLET ONE (19:04)
[2025-04-30] MEDS: MIDODRINE HCL (5MG) 5 MG TABLET PO ONE (19:13)
[2025-04-30] MEDS: IV NS 0.9% 500 ML BAG IV ONE (19:13)
[2025-04-30 19:42] LABS: PLATELET COUNT (AUTO) 118 K/uL (150-450); RED BLOOD CELL COUNT(AUTO) 3.56 MIL/uL (4.5-6.0); RED CELL DISTRIBUTION WIDTH 16.9 % (11.5-15.0); WHITE BLOOD COUNT (AUTO) 9.4 K/uL (4.3-11.0)
[2025-04-30 19:49] LABS: APPEARANCE,URINE CLOUDY (CLEAR); BLOOD, URINE 2+ Ery/uL (NEGATIVE); LEUKOCYTE ESTERASE ,URINE 2+ (NEGATIVE); NITRITE, URINE NEGATIVE (NEGATIVE); UGLUCOSE NEGATIVE (NEGATIVE)
[2025-04-30 19:55] LABS: INR 1.24 (0.91-1.10)
[2025-04-30 19:56] LABS: LACTIC ACID 1.4 mmol/L (0.4-2.0)
[2025-04-30 20:01] LABS: CALCIUM, SERUM 7.2 mg/dL (8.5-10.1); CREATININE 2.2 mg/dL (0.6-1.3); SODIUM SERUM 137.0 mmol/L (136-145); UREA NITROGEN, BLOOD 0.0 mg/dL (7-18)
[2025-04-30 20:08] LABS: ASPARTATE AMINOTRANSFERASE 51.0 U/L (15-37); TOTAL PROTEIN, SERUM 5.0 g/dL (6.4-8.2)
[2025-04-30 20:18] LABS: YEAST,URINE Many /HPF (None Seen)
[2025-04-30 20:26] LABS: ADD URINE CULTURE YES; SQUAMOUS EPITHELIAL CELL,UR Many /HPF (None Seen)
[2025-04-30 21:25] VITALS: BP 104/77; TEMP 97.9; O2SAT 95
[2025-04-30] MEDS ORDERED: ONDANSETRON HCL/PF 4 MG/2 ML VIAL IVP PRN (21:30)
[2025-04-30] MEDS ORDERED: MAG HYDROX/AL HYDROX/SIMETH 30 ML UDC PO PRN (21:30)
[2025-04-30] MEDS ORDERED: MAGNESIUM HYDROXIDE 30 ML UDC PO PRN (21:30)
[2025-04-30] MEDS ORDERED: PANT40TA49 PO (21:55)
[2025-04-30] MEDS ORDERED: HYDR-3972 PO (21:55)
[2025-04-30] MEDS ORDERED: LACT10SO29 PO (21:55)
[2025-04-30] MEDS ORDERED: RIFA550T PO (21:56)
[2025-04-30] MEDS: LEVOFLOXACIN 750 MG /D5W 150ML 150 ML IV ONE (22:28)
[2025-05-01] VITALS (22 sets, daily range): BP systolic 83–104; BP diastolic 63–82; TEMP 97.7–98.8; O2SAT 95–100
[2025-05-01] MEDS ORDERED: MEROPENEM 500MG/NS 50 ML PB IV ONE (02:52)
[2025-05-01] MEDS: MEROPENEM 500 MG in IV NS 0.9% 50 ML IV ONE (02:56)
[2025-05-01 07:48] LABS: PLATELET COUNT (AUTO) 126 K/uL (150-450); RED BLOOD CELL COUNT(AUTO) 3.50 MIL/uL (4.5-6.0); RED CELL DISTRIBUTION WIDTH 17.0 % (11.5-15.0); WHITE BLOOD COUNT (AUTO) 8.5 K/uL (4.3-11.0)
[2025-05-01 07:50] LABS: SERUM AMMONIA 28.0 umol/L (11-32)
[2025-05-01 08:09] LABS: CALCIUM, SERUM 7.6 mg/dL (8.5-10.1); CREATININE 2.4 mg/dL (0.6-1.3); PHOSPHORUS 4.1 mg/dL (2.5-4.9); SODIUM SERUM 138.0 mmol/L (136-145); UREA NITROGEN, BLOOD 35.0 mg/dL (7-18)
[2025-05-01] MEDS ORDERED: EPOE1VIA6 SQ (08:12)
[2025-05-01] MEDS ORDERED: NALO4SPR NS (08:12)
[2025-05-01] MEDS ORDERED: ACET325T53 PO (08:12)
[2025-05-01] MEDS: PANTOPRAZOLE 40 MG TABLET.DR PO SCH (08:48)
[2025-05-01] MEDS: MIDODRINE HCL (5MG) 5 MG TABLET PO SCH (08:49)
[2025-05-01] MEDS: THERAHONEY GEL 1.5 OZ TUBE TP SCH (10:35)
[2025-05-01] MEDS ORDERED: ALBUMIN 25% 12.5 GM in PREMIX 1 EA IV ONE (16:00)
[2025-05-01] MEDS: ACETAMINOPHEN 325 MG TABLET PO PRN (22:03)
[2025-05-01] MEDS: MEROPENEM 500 MG in IV NS 0.9% 50 ML IV SCH (23:16)
[2025-05-02] VITALS (21 sets, daily range): BP systolic 78–102; BP diastolic 56–76; TEMP 97.5–98.7; O2SAT 92–100
[2025-05-02 04:52] LABS: PLATELET COUNT (AUTO) 152 K/uL (150-450); RED BLOOD CELL COUNT(AUTO) 3.64 MIL/uL (4.5-6.0); RED CELL DISTRIBUTION WIDTH 16.8 % (11.5-15.0); WHITE BLOOD COUNT (AUTO) 11.0 K/uL (4.3-11.0)
[2025-05-02 05:14] LABS: ASPARTATE AMINOTRANSFERASE 52.0 U/L (15-37); CALCIUM, SERUM 7.6 mg/dL (8.5-10.1); CREATININE 2.4 mg/dL (0.6-1.3); NT-PRO BNP 1248.0 pg/mL (0-125); PHOSPHORUS 4.3 mg/dL (2.5-4.9); SODIUM SERUM 135.0 mmol/L (136-145); TOTAL PROTEIN, SERUM 5.0 g/dL (6.4-8.2); UREA NITROGEN, BLOOD 43.0 mg/dL (7-18)
[2025-05-02] MEDS: LACTULOSE 10 G/15 ML UDC (PYXIS) PO SCH (08:22)
[2025-05-02] MEDS: RIFAXIMIN 550 MG TABLET PO SCH (08:23)
[2025-05-02] MEDS ORDERED: PANTOPRAZOLE 40 MG TABLET.DR PO SCH (09:00)
[2025-05-02] MEDS ORDERED: MIDODRINE HCL (5MG) 5 MG TABLET PO SCH (09:00)
[2025-05-02] MEDS ORDERED: ALBUMIN 25% 12.5 GM/50 ML BOTTLE IV ONE (13:30)
[2025-05-02] MEDS ORDERED: ALBUMIN 25% 25 GM in PREMIX 1 EA IV ONE (14:00)
[2025-05-02] MEDS: ALBUMIN 25% 50 GM in PREMIX 1 EA IV ONE (14:26)
[2025-05-02] MEDS: TAMSULOSIN 0.4 MG CAP.SR.24H PO SCH (21:21)
[2025-05-03] VITALS: BP 133/98; TEMP 97.6; O2SAT 98
[2025-05-03 04:00] VITALS: BP 128/61; TEMP 97.9; O2SAT 98
[2025-05-03 07:26] LABS: PLATELET COUNT (AUTO) 136 K/uL (150-450); RED BLOOD CELL COUNT(AUTO) 3.52 MIL/uL (4.5-6.0); RED CELL DISTRIBUTION WIDTH 17.5 % (11.5-15.0); WHITE BLOOD COUNT (AUTO) 8.1 K/uL (4.3-11.0)
[2025-05-03 07:37] LABS: CALCIUM, SERUM 8.0 mg/dL (8.5-10.1); CREATININE 2.7 mg/dL (0.6-1.3); PHOSPHORUS 4.8 mg/dL (2.5-4.9); SODIUM SERUM 139.0 mmol/L (136-145); UREA NITROGEN, BLOOD 45.0 mg/dL (7-18)
[2025-05-03 08:00] VITALS: BP 90/67; TEMP 98.4; O2SAT 100
[2025-05-03] MEDS: ALBUMIN 25% 25 GM in PREMIX 1 EA IV PRN (10:53)
[2025-05-03 12:00] VITALS: BP 93/77; TEMP 97.6; O2SAT 99
[2025-05-03] MEDS ORDERED: CEFTRIAXONE 1GM BAG (ER ONLY) 1 GM/50 ML PIGGYBACK IV ONE (15:30)
[2025-05-03 16:00] VITALS: BP 91/70; TEMP 98.2; O2SAT 99
[2025-05-03] MEDS: CEFTRIAXONE 1 G in IV D5W 50 ML IV ONE (17:09)
[2025-05-03 20:00] VITALS: BP 86/63; TEMP 98.6; O2SAT 100
[2025-05-03] MEDS: FLUCONAZOLE (100 MG) 100 MG TABLET PO SCH (20:02)
[2025-05-04] VITALS: BP 97/69; O2SAT 97
[2025-05-04 04:00] VITALS: BP 91/79; TEMP 98.4; O2SAT 98
[2025-05-04 07:04] LABS: CALCIUM, SERUM 7.9 mg/dL (8.5-10.1); CREATININE 2.3 mg/dL (0.6-1.3); SODIUM SERUM 140.0 mmol/L (136-145); UREA NITROGEN, BLOOD 32.0 mg/dL (7-18)
[2025-05-04 07:12] LABS: PLATELET COUNT (AUTO) 106 K/uL (150-450); RED BLOOD CELL COUNT(AUTO) 3.82 MIL/uL (4.5-6.0); RED CELL DISTRIBUTION WIDTH 17.8 % (11.5-15.0); WHITE BLOOD COUNT (AUTO) 8.3 K/uL (4.3-11.0)
[2025-05-04 08:00] VITALS: BP 80/50; TEMP 97.7; O2SAT 99
[2025-05-04] MEDS: METRONIDAZOLE 500MG/ NS 100ML 500 MG in PREMIX 1 EA IV SCH (12:29)
[2025-05-04] MEDS: VANCOMYCIN HCL 125 MG CAPSULE PO SCH (12:29)
[2025-05-04 16:00] VITALS: BP 90/75; TEMP 97.9; O2SAT 99
[2025-05-04 20:00] VITALS: BP 91/71; TEMP 99.2; O2SAT 100
[2025-05-05 04:00] VITALS: BP 82/68; TEMP 97.5; O2SAT 100
[2025-05-05 08:00] VITALS: BP 86/64; TEMP 97.9; O2SAT 95
[2025-05-05 08:17] LABS: PLATELET COUNT (AUTO) 108 K/uL (150-450); RED BLOOD CELL COUNT(AUTO) 3.99 MIL/uL (4.5-6.0); RED CELL DISTRIBUTION WIDTH 18.1 % (11.5-15.0); WHITE BLOOD COUNT (AUTO) 8.2 K/uL (4.3-11.0)
[2025-05-05 09:00] LABS: CALCIUM, SERUM 7.9 mg/dL (8.5-10.1); CREATININE 2.9 mg/dL (0.6-1.3); PHOSPHORUS 4.7 mg/dL (2.5-4.9); SODIUM SERUM 133.0 mmol/L (136-145); UREA NITROGEN, BLOOD 40.0 mg/dL (7-18)
[2025-05-05 09:22] VITALS: BP 86/64; TEMP 97.9; O2SAT 95
[2025-05-05] MEDS ORDERED: METR500T PO (10:10)
[2025-05-05] MEDS ORDERED: FLUC100T8 PO (10:10)
[2025-05-05] MEDS ORDERED: VANC125C11 PO (10:10)
[2025-05-05 16:02] VITALS: BP 90/62; TEMP 98.1; O2SAT 99
[2025-05-05 16:13] VITALS: BP 90/62
[2025-05-05] MEDS ORDERED: METRONIDAZOLE 500 MG TABLET PO SCH (21:00)
== END 2025-05-05 17:00 | DRG 432 ==
LOC: ER 18:30 → TELE1 20:55 → ICU 05-01 15:55 → TELE1 05-02 18:30 → MEDSG1 05-04 09:12
PROVIDERS: ATTEND Nurse Practitioner Family
PROC: 5A1D70Z Performance of Urinary Filtration, Intermittent, Less than 6 Hours Per Day (ICD-10-PCS; principal; 2025-05-02)
PROC: 0W9G3ZZ Drainage of Peritoneal Cavity, Percutaneous Approach (ICD-10-PCS; 2025-05-02)
DX: K70.31 Alcoholic cirrhosis of liver with ascites (principal); E43 Unspecified severe protein-calorie malnutrition; L89.153 Pressure ulcer of sacral region, stage 3; L89.323 Pressure ulcer of left buttock, stage 3; L89.313 Pressure ulcer of right buttock, stage 3; N18.6 End stage renal disease; A04.72 Enterocolitis due to Clostridium difficile, not specified as recurrent; L89.122 Pressure ulcer of left upper back, stage 2; R64 Cachexia; L89.626 Pressure-induced deep tissue damage of left heel; I12.0 Hypertensive chronic kidney disease with stage 5 chronic kidney disease or end stage renal disease; T83.511A Infection and inflammatory reaction due to indwelling urethral catheter, initial encounter; Z99.2 Dependence on renal dialysis; D63.8 Anemia in other chronic diseases classified elsewhere; E11.22 Type 2 diabetes mellitus with diabetic chronic kidney disease; F10.21 Alcohol dependence, in remission; B37.49 Other urogenital candidiasis; Z68.1 Body mass index [BMI] 19.9 or less, adult; I47.10 Supraventricular tachycardia, unspecified; E88.09 Other disorders of plasma-protein metabolism, not elsewhere classified; I48.0 Paroxysmal atrial fibrillation; Y84.6 Urinary catheterization as the cause of abnormal reaction of the patient, or of later complication, without mention of misadventure at the time of the procedure; Y92.129 Unspecified place in nursing home as the place of occurrence of the external cause; K80.20 Calculus of gallbladder without cholecystitis without obstruction; E78.5 Hyperlipidemia, unspecified; K42.9 Umbilical hernia without obstruction or gangrene; N40.1 Benign prostatic hyperplasia with lower urinary tract symptoms; Z88.0 Allergy status to penicillin; E11.51 Type 2 diabetes mellitus with diabetic peripheral angiopathy without gangrene; E87.70 Fluid overload, unspecified; I95.89 Other hypotension; Z86.19 Personal history of other infectious and parasitic diseases; M79.672 Pain in left foot; M79.671 Pain in right foot; K57.30 Diverticulosis of large intestine without perforation or abscess without bleeding; L98.8 Other specified disorders of the skin and subcutaneous tissue; E83.89 Other disorders of mineral metabolism
CPT/HCPCS: 36415; 49083; 71045-TC; 80048-TC; 80053-TC; 80076-TC; 81001; 82140-TC; 82533; 83605-TC; 83690-TC; 83735-TC; 83880; 84100-TC; 84484-TC; 85025-TC; 85730-TC; 87040-TC; 87070-TC; 87075-TC; 87081-TC; 87086-TC; 88112-TC; 88305-TC; 90935-TC; 93307-TC; 97110-TC; 97530-TC; A4216; A4223; G0378; J0696; J1956; J2185; J7030; J7040; J7050; J7060; P9047

== ENCOUNTER 2025-05-22 13:28 | Inpatient (IN) | payer MEDICARE, OTHER ==
[~2025-05-22] VITALS: Ht 172.7 cm; Wt 50.0 kg
[~2025-05-22 13:28] MED LIST changes: -AMIN30LI25 PO; -ASCO500T10 PO; +EPOE1VIA6 SQ; -ERTA1VIA4 IV; +FLUC100T8 PO; +HYDR-3972 PO; +LACT10SO29 PO; -MELA5TAB PO; +METR500T PO; -MULT-754 PO; +NALO4SPR NS; -NUT.237L67 PO; -ONDA-97 PO; +PANT40TA49 PO; +PERM60CR4 TP; +RIFA550T PO; +VANC125C11 PO
[2025-05-22 14:27] LABS: RED BLOOD CELL COUNT(AUTO) 4.31 MIL/uL (4.5-6.0); RED CELL DISTRIBUTION WIDTH 20.1 % (11.5-15.0); WHITE BLOOD COUNT (AUTO) 12.7 K/uL (4.3-11.0)
[2025-05-22 14:30] LABS: PLATELET COUNT (AUTO) 69 K/uL (150-450)
[2025-05-22 14:35] LABS: CALCIUM, SERUM 7.5 mg/dL (8.5-10.1); CREATININE 3.5 mg/dL (0.6-1.3); SODIUM SERUM 131.0 mmol/L (136-145); UREA NITROGEN, BLOOD 41.0 mg/dL (7-18)
[2025-05-22] MEDS ORDERED: ONDANSETRON HCL/PF 4 MG/2 ML VIAL ONE (14:39)
[2025-05-22] MEDS ORDERED: MORPHINE SULFATE INJ 4 MG/ML DISP.SYRIN ONE (14:40)
[2025-05-22 14:43] LABS: ASPARTATE AMINOTRANSFERASE 52.0 U/L (15-37); TOTAL PROTEIN, SERUM 5.6 g/dL (6.4-8.2)
[2025-05-22] MEDS: ONDANSETRON HCL/PF 4 MG/2 ML VIAL IVP ONE (14:45)
[2025-05-22] MEDS: IV NS 0.9% 500 ML BAG IV ONE (14:46)
[2025-05-22] MEDS: MORPHINE SULFATE INJ 2 MG/ML DISP.SYRIN IV ONE (14:46)
[2025-05-22] MEDS ORDERED: FLAGYL/NS RTU 500 MG/100 ML PIGGYBACK IV ONE (15:00)
[2025-05-22] MEDS: IV NS 0.9% 1,000 ML BAG IV ONE (15:25)
[2025-05-22] MEDS: METRONIDAZOLE 500MG/ NS 100ML 500 MG in PREMIX 1 EA IV ONE (15:27)
[2025-05-22 16:02] LABS: APPEARANCE,URINE CLOUDY (CLEAR)
[2025-05-22 16:03] LABS: BLOOD, URINE 3+ Ery/uL (NEGATIVE); UGLUCOSE NEGATIVE (NEGATIVE)
[2025-05-22 16:04] LABS: LEUKOCYTE ESTERASE ,URINE 3+ (NEGATIVE); NITRITE, URINE NEGATIVE (NEGATIVE)
[2025-05-22 16:23] LABS: LACTIC ACID 3.0 mmol/L (0.4-2.0)
[2025-05-22 16:25] LABS: ADD URINE CULTURE YES; SQUAMOUS EPITHELIAL CELL,UR 0-2 /HPF (None Seen)
[2025-05-22 16:29] LABS: BAND % (MANUAL) 1 % (0.0-5.0); LYMPHOCYTES % (MANUAL) 11 % (16-48); MONOCYTES % (MANUAL) 4 % (0-11.0); NEUTROPHILS % (MANUAL) 84 (42-76); PLATELET ESTIMATE DECREASED
[2025-05-22] MEDS ORDERED: Z GUARD REMEDY 4 OZ OINT TP PRN (16:30)
[2025-05-22] MEDS ORDERED: MAGNESIUM HYDROXIDE 30 ML UDC PO PRN ×2 (16:30)
[2025-05-22] MEDS: CIPROFLOXACIN IV RTU 400 MG in PREMIX 1 EA IV SCH (16:30)
[2025-05-22] MEDS ORDERED: HYDROCODONE/APAP 5/325MG TABLET PO PRN (16:30)
[2025-05-22] MEDS ORDERED: ACETAMINOPHEN 325 MG TABLET PO PRN ×2 (16:30)
[2025-05-22] MEDS ORDERED: BISACODYL SUPP (10 MG) 10 MG/SUPP.RECT SUPP.RECT RC PRN (16:30)
[2025-05-22] MEDS ORDERED: ONDANSETRON HCL/PF 4 MG/2 ML VIAL IVP PRN (16:30)
[2025-05-22] MEDS ORDERED: NALOXONE HCL 4 MG SPRAY NS PRN (16:30)
[2025-05-22] MEDS ORDERED: NA PHOS,M-B/NA PHOS,DI-BA 1 EA ENEMA RC PRN (16:30)
[2025-05-22] MEDS ORDERED: MAG HYDROX/AL HYDROX/SIMETH 30 ML UDC PO PRN (16:30)
[2025-05-22] MEDS: MIDODRINE HCL (5MG) 5 MG TABLET PO SCH (17:55)
[2025-05-22] MEDS: LACTULOSE 10 G/15 ML UDC (PYXIS) PO SCH (17:55)
[2025-05-22] MEDS: GABAPENTIN 300 MG CAPSULE PO SCH (17:55)
[2025-05-22] MEDS: CEFTRIAXONE 1 G in IV D5W 50 ML IV SCH (20:05)
[2025-05-22] MEDS: TAMSULOSIN 0.4 MG CAP.SR.24H PO SCH (22:38)
[2025-05-22] MEDS: METRONIDAZOLE 500MG/ NS 100ML 500 MG in PREMIX 1 EA IV SCH (23:09)
[2025-05-23 07:34] LABS: PLATELET COUNT (AUTO) 66 K/uL (150-450); RED BLOOD CELL COUNT(AUTO) 3.80 MIL/uL (4.5-6.0); RED CELL DISTRIBUTION WIDTH 19.8 % (11.5-15.0); WHITE BLOOD COUNT (AUTO) 11.7 K/uL (4.3-11.0)
[2025-05-23 07:49] LABS: CALCIUM, SERUM 7.6 mg/dL (8.5-10.1); CREATININE 3.6 mg/dL (0.6-1.3); PHOSPHORUS 5.8 mg/dL (2.5-4.9); SODIUM SERUM 133.0 mmol/L (136-145); UREA NITROGEN, BLOOD 41.0 mg/dL (7-18)
[2025-05-23] MEDS: POLYETHYLENE GLYCOL 3350 17 GM POWD.PACK PO SCH (09:22)
[2025-05-23] MEDS: PANTOPRAZOLE 40 MG TABLET.DR PO SCH (09:22)
[2025-05-23] MEDS: RIFAXIMIN 550 MG TABLET PO SCH (09:22)
[2025-05-23 09:51] VITALS: BP 101/81; TEMP 97.7; O2SAT 100
[2025-05-23 11:28] LABS: INR 2.4 (0.91-1.10)
[2025-05-23 12:27] LABS: BASOPHILS % (MANUAL) 0 % (0.0-2.0); EOSINOPHILS % (MANUAL) 0 % (0-4); LYMPHOCYTES % (MANUAL) 5 % (16-48); MONOCYTES % (MANUAL) 6 % (0-11.0); NEUTROPHILS % (MANUAL) 89 (42-76); PLATELET ESTIMATE DECREASED
[2025-05-23] MEDS: ALBUMIN 25% 12.5 GM in PREMIX 1 EA IV PRN (15:10)
[2025-05-23 16:00] VITALS: BP 89/68; TEMP 97.7; O2SAT 96
[2025-05-23] MEDS: ALBUMIN 25% 12.5 GM in PREMIX 1 EA IV ONE (16:11)
[2025-05-23 16:57] LABS: APPEARANCE,SPUN,BODY FLUID CLEAR (CLEAR); TOTAL VOLUME,BODY FLUID 10400 mL
[2025-05-23 16:58] LABS: WBC, BODY FLUID 146 /cu. mm. (0-200)
[2025-05-23 18:04] LABS: PROTEIN, BODY FLUID 2.2 G/DL
[2025-05-23 18:54] LABS: MACROPHAGES, BODY FLUID 0; MONOCYTES,BODY FLUID 2 %
[2025-05-23 20:00] VITALS: BP 99/78; TEMP 97.3; O2SAT 96
[2025-05-23] MEDS ORDERED: ALBUMIN 25% 100 ML IV ONE (20:21)
[2025-05-23] MEDS: ALBUMIN 25% 25 GM in PREMIX 1 EA IV PRN (20:30)
[2025-05-24] VITALS (13 sets, daily range): BP systolic 76–95; BP diastolic 64–74; TEMP 97.1–98.1; O2SAT 90–100
[2025-05-24] MEDS ORDERED: ALBUMIN 25% 100 ML IV ONE (04:39)
[2025-05-24] MEDS: ALBUMIN 25% 25 GM in PREMIX 1 EA IV ONE (05:43)
[2025-05-24 08:16] LABS: CALCIUM, SERUM 7.3 mg/dL (8.5-10.1); CREATININE 3.4 mg/dL (0.6-1.3); SODIUM SERUM 134.0 mmol/L (136-145); UREA NITROGEN, BLOOD 38.0 mg/dL (7-18)
[2025-05-24 08:28] LABS: INR 1.88 (0.91-1.10)
[2025-05-24 08:30] LABS: RED BLOOD CELL COUNT(AUTO) 3.50 MIL/uL (4.5-6.0); RED CELL DISTRIBUTION WIDTH 20.0 % (11.5-15.0); WHITE BLOOD COUNT (AUTO) 12.4 K/uL (4.3-11.0)
[2025-05-24 08:37] LABS: PLATELET COUNT (AUTO) 45 K/uL (150-450)
[2025-05-24 09:54] LABS: LYMPHOCYTES % (MANUAL) 1 % (16-48); MONOCYTES % (MANUAL) 4 % (0-11.0); NEUTROPHILS % (MANUAL) 95 (42-76); PLATELET ESTIMATE DECREASED
[2025-05-25 07:00] VITALS: BP 137/77; TEMP 97.3; O2SAT 97
[2025-05-25] MEDS: THERAHONEY GEL 1.5 OZ TUBE TP SCH (08:32)
[2025-05-25] MEDS: LACTULOSE 20 G/30 ML UDC PO SCH (08:49)
[2025-05-25 15:00] VITALS: BP 92/73; TEMP 97.5; O2SAT 92
[2025-05-25 20:00] VITALS: BP 94/67; TEMP 97.9; O2SAT 95
[2025-05-26 09:14] VITALS: BP 88/70; TEMP 97.5; O2SAT 96
[2025-05-26] MEDS: EPOETIN ALFA (10,000 UNIT) 10,000 UNIT/ML VIAL SQ SCH (15:00)
[2025-05-26] MEDS ORDERED: NEPRO VAN 237 ML CAN PO PRN (18:30)
[2025-05-26] MEDS ORDERED: DOSING PER PHARMACY-GENTAMICIN IV XX PRN (20:00)
[2025-05-26] MEDS: GENTAMICIN 120 MG in IV D5W 100 ML IV ONE (21:38)
[2025-05-26] MEDS ORDERED: ALTEPLASE 1 VIAL ONE (21:43)
[2025-05-26] MEDS ORDERED: WATER FOR INJECTION STERILE IV ONE (21:50)
[2025-05-26] MEDS ORDERED: ALTEPLASE IV ONE (21:50)
[2025-05-26] MEDS: ALTEPLASE CATHFLO 2 MG/VIAL XX ONE (22:02)
[2025-05-27 07:00] VITALS: TEMP 98.1; O2SAT 100
[2025-05-27 07:35] VITALS: BP 80/60; TEMP 98.1; O2SAT 100
[2025-05-27 08:44] VITALS: BP 93/56; TEMP 98.1; O2SAT 100
[2025-05-27 12:27] LABS: RED BLOOD CELL COUNT(AUTO) 3.87 MIL/uL (4.5-6.0); RED CELL DISTRIBUTION WIDTH 20.0 % (11.5-15.0); WHITE BLOOD COUNT (AUTO) 14.0 K/uL (4.3-11.0)
[2025-05-27 12:36] LABS: PLATELET COUNT (AUTO) 40 K/uL (150-450)
[2025-05-27 12:50] LABS: CALCIUM, SERUM 7.3 mg/dL (8.5-10.1); CREATININE 3.3 mg/dL (0.6-1.3); SODIUM SERUM 134.0 mmol/L (136-145); UREA NITROGEN, BLOOD 35.0 mg/dL (7-18)
[2025-05-27 16:00] VITALS: BP 124/104; TEMP 97.3; O2SAT 96
[2025-05-27 16:22] LABS: LYMPHOCYTES % (MANUAL) 3 % (16-48); MONOCYTES % (MANUAL) 8 % (0-11.0); NEUTROPHILS % (MANUAL) 89 (42-76); PLATELET ESTIMATE DECREASED
[2025-05-27 16:45] VITALS: BP 120/60; TEMP 97.3; O2SAT 96
[2025-05-27 22:06] VITALS: BP 99/69; TEMP 99.1; O2SAT 98
[2025-05-28 08:00] VITALS: BP 88/48; TEMP 98.1; O2SAT 100
[2025-05-28 10:34] LABS: PLATELET COUNT (AUTO) 54 K/uL (150-450); RED BLOOD CELL COUNT(AUTO) 4.14 MIL/uL (4.5-6.0); RED CELL DISTRIBUTION WIDTH 20.5 % (11.5-15.0); WHITE BLOOD COUNT (AUTO) 8.9 K/uL (4.3-11.0)
[2025-05-28 10:41] LABS: CALCIUM, SERUM 7.6 mg/dL (8.5-10.1); CREATININE 3.8 mg/dL (0.6-1.3); SODIUM SERUM 134.0 mmol/L (136-145); UREA NITROGEN, BLOOD 42.0 mg/dL (7-18)
[2025-05-28 11:51] LABS: LYMPHOCYTES % (MANUAL) 5 % (16-48); MONOCYTES % (MANUAL) 11 % (0-11.0); NEUTROPHILS % (MANUAL) 84 (42-76); PLATELET ESTIMATE DECREASED
[2025-05-28] MEDS ORDERED: LACT10SO4 PO (12:27)
[2025-05-28] MEDS ORDERED: GENT40VI2 IV (12:27)
[2025-05-28] MEDS ORDERED: NUT.237L67 PO (12:27)
[2025-05-28 12:28] LABS: IRON, SERUM 28.0 ug/dl (50-175)
[2025-05-28 12:40] LABS: FIBRINOGEN ACTIVITY 135.0 Mg/dL (213-485); INR 2.09 (0.91-1.10)
[2025-05-28 13:17] LABS: RHEUMATOID FACTOR SCREEN NEGATIVE (NEGATIVE)
[2025-05-28 16:09] VITALS: BP 92/74; TEMP 98.1; O2SAT 92
[2025-05-28 16:49] VITALS: BP 94/46
[2025-05-28] MEDS: GENTAMICIN 80 MG in IV D5W 50 ML IV PRN (17:45)
[2025-05-29 07:11] LABS: HIV-1/2 ANTIBODY NON REACTIVE (NONREACTIVE)
[2025-05-29 08:07] LABS: FOLIC ACID 13.5 ng/mL (>3.0); HEPATITIS B CORE AB, TOTAL Negative (Negative)
[2025-05-29 09:07] LABS: *ANA ANTI-CENTROMERE B AB <0.2 AI (0.0-0.9); *ANA ANTI-DNA(DS) AB, QN <1 IU/mL (0-9); *ANA ANTI-JO-1 <0.2 AI (0.0-0.9); *ANA ANTICHROMATIN ANTIBODY <0.2 AI (0.0-0.9); *ANA RNP ANTIBODIES <0.2 AI (0.0-0.9); *ANA SJOGREN'S ANTI-SS-A <0.2 AI (0.0-0.9); *ANA SJOGREN'S ANTI-SS-B <0.2 AI (0.0-0.9); *ANAANTI-SCLERODERMA-70 AB <0.2 AI (0.0-0.9); *ANASMITH AB <0.2 AI (0.0-0.9)
[2025-05-29 12:07] LABS: IMMUNOGLOBULIN A, SERUM 496 mg/dL (61-437); IMMUNOGLOBULIN M, SERUM 30 mg/dL (15-143)
[2025-05-30 08:09] LABS: *SPE A/G RATIO 1.4 (0.7-1.7); *SPE ALBUMIN 2.6 g/dL (2.9-4.4); *SPE ALPHA-1-GLOBULIN 0.2 g/dL (0.0-0.4); *SPE ALPHA-2-GLOBULIN 0.3 g/dL (0.4-1.0); *SPE BETA GLOBULIN 0.6 g/dL (0.7-1.3); *SPE GLOBULIN, TOTAL 1.9 g/dL (2.2-3.9); *SPE M-SPIKE Not Observed g/dL (Not Observed); *SPE PROTEIN TOTAL 4.5 g/dL (6.0-8.5); *SPEGAMMA GLOBULIN 0.8 g/dL (0.4-1.8); FREE KAPPA LT CHAINS SERUM 173.7 mg/L (3.3-19.4); FREE LAMBDA LT CHAIN SERUM 169.2 mg/L (5.7-26.3); KAPPA/LAMBDA RATIO SERUM 1.03 (0.26-1.65)
[2025-06-05] MEDS ORDERED: LEVO250T59 PO (09:18)
== END 2025-05-28 21:50 | DRG 698 ==
LOC: ER 13:31 → MEDSG1 15:12 → MED 16:51
PROVIDERS: ADMIT Nurse Practitioner Acute Care; ATTEND Student in an Organized Health Care Education/Training Program
PROC: 30233K1 Transfusion of Nonautologous Frozen Plasma into Peripheral Vein, Percutaneous Approach (ICD-10-PCS; principal; 2025-05-23)
PROC: 0W9G3ZX Drainage of Peritoneal Cavity, Percutaneous Approach, Diagnostic (ICD-10-PCS; 2025-05-23)
PROC: 5A1D70Z Performance of Urinary Filtration, Intermittent, Less than 6 Hours Per Day (ICD-10-PCS; 2025-05-23)
DX: T83.511A Infection and inflammatory reaction due to indwelling urethral catheter, initial encounter (principal); A41.9 Sepsis, unspecified organism; E43 Unspecified severe protein-calorie malnutrition; N18.6 End stage renal disease; R65.20 Severe sepsis without septic shock; R64 Cachexia; D61.818 Other pancytopenia; K76.82 Hepatic encephalopathy; E88.09 Other disorders of plasma-protein metabolism, not elsewhere classified; D63.8 Anemia in other chronic diseases classified elsewhere; I12.0 Hypertensive chronic kidney disease with stage 5 chronic kidney disease or end stage renal disease; J90 Pleural effusion, not elsewhere classified; Z99.2 Dependence on renal dialysis; B96.89 Other specified bacterial agents as the cause of diseases classified elsewhere; B96.1 Klebsiella pneumoniae [K. pneumoniae] as the cause of diseases classified elsewhere; E11.22 Type 2 diabetes mellitus with diabetic chronic kidney disease; I34.0 Nonrheumatic mitral (valve) insufficiency; J81.1 Chronic pulmonary edema; E87.1 Hypo-osmolality and hyponatremia; B37.49 Other urogenital candidiasis; J98.11 Atelectasis; K70.31 Alcoholic cirrhosis of liver with ascites; R62.7 Adult failure to thrive; E78.5 Hyperlipidemia, unspecified; B19.20 Unspecified viral hepatitis C without hepatic coma; Z86.19 Personal history of other infectious and parasitic diseases; N40.0 Benign prostatic hyperplasia without lower urinary tract symptoms; Z88.0 Allergy status to penicillin; Z79.899 Other long term (current) drug therapy; K80.20 Calculus of gallbladder without cholecystitis without obstruction; K43.9 Ventral hernia without obstruction or gangrene; K42.9 Umbilical hernia without obstruction or gangrene; L98.9 Disorder of the skin and subcutaneous tissue, unspecified; G89.29 Other chronic pain; Z87.19 Personal history of other diseases of the digestive system; I95.89 Other hypotension; I48.0 Paroxysmal atrial fibrillation; Y84.6 Urinary catheterization as the cause of abnormal reaction of the patient, or of later complication, without mention of misadventure at the time of the procedure; Y92.129 Unspecified place in nursing home as the place of occurrence of the external cause
CPT/HCPCS: 36415; 49083; 71045-TC; 80048-TC; 80076-TC; 80170-TC; 81001; 82040-TC; 82140-TC; 82607-TC; 82728-TC; 82784; 83540-TC; 83605-TC; 83690-TC; 83735-TC; 84100-TC; 84155; 84165; 84443-TC; 85027-TC; 85396; 85610-TC; 85730-TC; 86225; 86235; 86317; 86334; 86431-TC; 86704; 86803; 86850-TC; 87040-TC; 87081-TC; 87086-TC; 87186-TC; 87205-TC; 87340; 87806; 88112-TC; 88305-TC; 89051-TC; 90935-TC; A4216; A4223; G0378; J0696; J0744; J0885; J1580; J2270; J2405; J2997; J7030; J7040; J7060; P9017; P9047

== ENCOUNTER 2025-06-01 19:53 | Inpatient (IN) | payer MEDICARE, OTHER ==
[~2025-06-01] VITALS: Ht 177.8 cm; Wt 56.7 kg
[~2025-06-01 19:53] MED LIST changes: -FLUC100T8 PO; +GENT40VI2 IV; +LACT10SO4 PO; -METR500T PO; +NUT.237L67 PO; -VANC125C11 PO
[2025-06-01 20:37] LABS: RED BLOOD CELL COUNT(AUTO) 3.66 MIL/uL (4.5-6.0); RED CELL DISTRIBUTION WIDTH 20.4 % (11.5-15.0); WHITE BLOOD COUNT (AUTO) 15.9 K/uL (4.3-11.0)
[2025-06-01 20:47] LABS: CALCIUM, SERUM 7.4 mg/dL (8.5-10.1); CREATININE 3.6 mg/dL (0.6-1.3); SODIUM SERUM 135 mmol/L (136-145); UREA NITROGEN, BLOOD 33 mg/dL (7-18)
[2025-06-01 20:54] LABS: PLATELET COUNT (AUTO) 43 K/uL (150-450)
[2025-06-01 21:00] LABS: ASPARTATE AMINOTRANSFERASE 62 U/L (15-37); NT-PRO BNP 17598 pg/mL (0-125); TOTAL PROTEIN, SERUM 5.5 g/dL (6.4-8.2)
[2025-06-01] MEDS ORDERED: AZITHROMYCIN 500 MG in IV D5W 250 ML IV ONE (21:30)
[2025-06-01] MEDS ORDERED: FUROSEMIDE 20 MG/2 ML VIAL ONE (21:51)
[2025-06-01] MEDS ORDERED: LEVOFLOXACIN 250 MG /D5W 50 ML 50 ML IV ONE (21:52)
[2025-06-01] MEDS: LEVOFLOXACIN 250 MG /D5W 50 ML 250 MG/50 ML PIGGYBACK IV ONE (22:00)
[2025-06-01] MEDS: FUROSEMIDE 20 MG/2 ML VIAL IV ONE (22:00)
[2025-06-01] MEDS ORDERED: ACETAMINOPHEN 325 MG TABLET PO PRN (22:30)
[2025-06-01] MEDS ORDERED: LEVOFLOXACIN 500 MG /D5W 100ML 500 MG in PREMIX 1 EA IV SCH (22:30)
[2025-06-01] MEDS ORDERED: DOSING PER PHARMACY-GENTAMICIN IV XX PRN (22:30)
[2025-06-01] MEDS ORDERED: LACTULOSE 10 G/15 ML UDC (PYXIS) PO SCH (22:30)
[2025-06-01] MEDS ORDERED: MAG HYDROX/AL HYDROX/SIMETH 30 ML UDC PO PRN (22:30)
[2025-06-01] MEDS ORDERED: ONDANSETRON HCL/PF 4 MG/2 ML VIAL IVP PRN (22:30)
[2025-06-01] MEDS ORDERED: GENTAMICIN 80 MG in IV D5W 50 ML IV ONE (23:30)
[2025-06-01] MEDS: MIDODRINE HCL (5MG) 5 MG TABLET PO SCH (23:32)
[2025-06-01] MEDS: GABAPENTIN 300 MG CAPSULE PO SCH (23:32)
[2025-06-01] MEDS: LACTULOSE 10 G/15 ML UDC (PYXIS) PO SCH (23:32)
[2025-06-01] MEDS: TAMSULOSIN 0.4 MG CAP.SR.24H PO SCH (23:33)
[2025-06-01 23:43] LABS: LYMPHOCYTES % (MANUAL) 4 % (16-48); MONOCYTES % (MANUAL) 6 % (0-11.0); NEUTROPHILS % (MANUAL) 90 (42-76)
[2025-06-01 23:44] LABS: PLATELET ESTIMATE DECREASED
[2025-06-01 23:45] VITALS: BP 100/77; TEMP 97.3; O2SAT 100
[2025-06-02] VITALS (8 sets, daily range): BP systolic 90–127; BP diastolic 55–84; TEMP 97.3–98.1; O2SAT 90–100
[2025-06-02] MEDS ORDERED: GENTAMICIN 80 MG/2 ML VIAL ONE (00:17)
[2025-06-02] MEDS: GENTAMICIN 80 MG in IV D5W 100 ML IV ONE (00:32)
[2025-06-02 06:56] LABS: RED BLOOD CELL COUNT(AUTO) 3.30 MIL/uL (4.5-6.0); RED CELL DISTRIBUTION WIDTH 20.5 % (11.5-15.0); WHITE BLOOD COUNT (AUTO) 16.7 K/uL (4.3-11.0)
[2025-06-02 07:05] LABS: CALCIUM, SERUM 7.4 mg/dL (8.5-10.1); CREATININE 3.6 mg/dL (0.6-1.3); PHOSPHORUS 5.3 mg/dL (2.5-4.9); SODIUM SERUM 135.0 mmol/L (136-145); UREA NITROGEN, BLOOD 36.0 mg/dL (7-18)
[2025-06-02 07:43] LABS: PLATELET COUNT (AUTO) 42 K/uL (150-450)
[2025-06-02] MEDS ORDERED: ONDA4TAB5 PO (08:24)
[2025-06-02] MEDS ORDERED: GENT70PI2 IV (08:24)
[2025-06-02 08:42] LABS: BASOPHILS % (MANUAL) 0 % (0.0-2.0); EOSINOPHILS % (MANUAL) 0 % (0-4); LYMPHOCYTES % (MANUAL) 6 % (16-48); MONOCYTES % (MANUAL) 11 % (0-11.0); NEUTROPHILS % (MANUAL) 83 (42-76); PLATELET ESTIMATE DECREASED
[2025-06-02] MEDS: RIFAXIMIN 550 MG TABLET PO SCH (09:12)
[2025-06-02] MEDS: PANTOPRAZOLE 40 MG TABLET.DR PO SCH (09:14)
[2025-06-02] MEDS: POLYETHYLENE GLYCOL 3350 17 GM POWD.PACK PO SCH (09:14)
[2025-06-02] MEDS: NEPRO VAN 237 ML CAN PO PRN (09:15)
[2025-06-02] MEDS ORDERED: ALBUMIN 25% 12.5 GM/50 ML BOTTLE IV STA (11:54)
[2025-06-02] MEDS ORDERED: ALBUMIN 25% 50 GM in PREMIX 1 EA IV STA (11:59)
[2025-06-02] MEDS ORDERED: LIDOCAINE 2% JEL UROJET 10 ML MM ONE (12:00)
[2025-06-02] MEDS ORDERED: ALBUMIN 25% 25 GM in PREMIX 1 EA IV STA (12:00)
[2025-06-02] MEDS: PHYTONADIONE INJ 1 MG/0.5 ML AMPUL SQ ONE (12:00)
[2025-06-02] MEDS: THERAHONEY GEL 1.5 OZ TUBE TP SCH (12:25)
[2025-06-02] MEDS: ALBUMIN 25% 50 GM in PREMIX 1 EA IV STA (12:33)
[2025-06-02] MEDS: PHYTONADIONE INJ 10 MG/1 ML AMPUL SQ ONE (15:39)
[2025-06-02] MEDS: EPOETIN ALFA (10,000 UNIT) 10,000 UNIT/ML VIAL SQ SCH (15:39)
[2025-06-02] MEDS ORDERED: GENTAMICIN 80 MG in IV D5W 50 ML IV PRN (18:00)
[2025-06-02 21:02] LABS: INR 1.92 (0.91-1.10)
[2025-06-03] VITALS: BP 90/68; TEMP 97.5; O2SAT 100
[2025-06-03 04:00] VITALS: BP 95/72; TEMP 98.1; O2SAT 99
[2025-06-03 07:43] LABS: CALCIUM, SERUM 7.7 mg/dL (8.5-10.1); CREATININE 2.8 mg/dL (0.6-1.3); SODIUM SERUM 138.0 mmol/L (136-145); UREA NITROGEN, BLOOD 25.0 mg/dL (7-18)
[2025-06-03 07:56] LABS: RED BLOOD CELL COUNT(AUTO) 3.27 MIL/uL (4.5-6.0); RED CELL DISTRIBUTION WIDTH 21.0 % (11.5-15.0); WHITE BLOOD COUNT (AUTO) 11.9 K/uL (4.3-11.0)
[2025-06-03 08:00] VITALS: BP 103/79; TEMP 98.6; O2SAT 98
[2025-06-03 08:03] LABS: PHOSPHORUS 3.8 mg/dL (2.5-4.9)
[2025-06-03 08:06] LABS: PLATELET COUNT (AUTO) 32 K/uL (150-450)
[2025-06-03 10:28] LABS: LYMPHOCYTES % (MANUAL) 3 % (16-48); MONOCYTES % (MANUAL) 4 % (0-11.0); NEUTROPHILS % (MANUAL) 93 (42-76); PLATELET ESTIMATE DECREASED
[2025-06-03 12:00] VITALS: BP 100/69; TEMP 98.1; O2SAT 98
[2025-06-03 16:00] VITALS: BP 100/76; TEMP 97.3; O2SAT 99
[2025-06-03 20:00] VITALS: BP 96/74; TEMP 97.8; O2SAT 100
[2025-06-03] MEDS: LEVOFLOXACIN 250 MG /D5W 50 ML 250 MG in PREMIX 1 EA IV SCH (21:39)
[2025-06-04] VITALS: BP 108/78; TEMP 98.1; O2SAT 98
[2025-06-04 04:00] VITALS: BP 97/70; TEMP 98.1; O2SAT 100
[2025-06-04 06:52] LABS: CALCIUM, SERUM 7.8 mg/dL (8.5-10.1); CREATININE 3.2 mg/dL (0.6-1.3); SODIUM SERUM 133.0 mmol/L (136-145); UREA NITROGEN, BLOOD 31.0 mg/dL (7-18)
[2025-06-04 08:00] VITALS: BP 97/65; TEMP 98.1; O2SAT 99
[2025-06-04 16:00] VITALS: BP 103/74; TEMP 98.1; O2SAT 99
[2025-06-04] MEDS: ALBUMIN 25% 25 GM in PREMIX 1 EA IV PRN (19:08)
[2025-06-04 19:16] LABS: RED BLOOD CELL COUNT(AUTO) 2.90 MIL/uL (4.5-6.0); RED CELL DISTRIBUTION WIDTH 20.9 % (11.5-15.0); WHITE BLOOD COUNT (AUTO) 12.3 K/uL (4.3-11.0)
[2025-06-04 19:29] LABS: PLATELET COUNT (AUTO) 48 K/uL (150-450)
[2025-06-04 19:30] LABS: LYMPHOCYTES % (MANUAL) 8 % (16-48); MONOCYTES % (MANUAL) 18 % (0-11.0); NEUTROPHILS % (MANUAL) 74 (42-76); PLATELET ESTIMATE DECREASED
[2025-06-04 20:00] VITALS: BP 98/69; TEMP 97.3; O2SAT 97
[2025-06-05] VITALS: BP 89/58; TEMP 97.3; O2SAT 96
[2025-06-05 04:00] VITALS: BP_SYST 121; BP_DIAS 97; BP_DIAS 99; TEMP 97.5; O2SAT 96
[2025-06-05] MEDS ORDERED: LEVO250T59 PO (09:18)
[2025-06-05 13:28] VITALS: BP 103/77
[2025-06-05 13:28] LABS: CALCIUM, SERUM 7.2 mg/dL (8.5-10.1); CREATININE 3.1 mg/dL (0.6-1.3); SODIUM SERUM 138.0 mmol/L (136-145); UREA NITROGEN, BLOOD 31.0 mg/dL (7-18)
[2025-06-05 14:11] LABS: RED BLOOD CELL COUNT(AUTO) 3.15 MIL/uL (4.5-6.0); RED CELL DISTRIBUTION WIDTH 21.0 % (11.5-15.0); WHITE BLOOD COUNT (AUTO) 10.0 K/uL (4.3-11.0)
[2025-06-05 14:37] LABS: PLATELET COUNT (AUTO) 39 K/uL (150-450)
[2025-06-05 15:46] LABS: NEUTROPHILS % (MANUAL) 87 (42-76)
[2025-06-05 15:47] LABS: LYMPHOCYTES % (MANUAL) 8 % (16-48); MONOCYTES % (MANUAL) 5 % (0-11.0); PLATELET ESTIMATE DECREASED
== END 2025-06-05 16:25 | DRG 871 ==
LOC: ER 19:55 → TELE 21:50 → MED 06-05 11:08
PROVIDERS: ADMIT Nurse Practitioner Acute Care; ATTEND Internal Medicine
PROC: 0W993ZZ Drainage of Right Pleural Cavity, Percutaneous Approach (ICD-10-PCS; principal; 2025-06-02)
PROC: 5A1D70Z Performance of Urinary Filtration, Intermittent, Less than 6 Hours Per Day (ICD-10-PCS; 2025-06-02)
DX: A41.9 Sepsis, unspecified organism (principal); E43 Unspecified severe protein-calorie malnutrition; L89.153 Pressure ulcer of sacral region, stage 3; N18.6 End stage renal disease; R65.21 Severe sepsis with septic shock; J15.9 Unspecified bacterial pneumonia; I50.33 Acute on chronic diastolic (congestive) heart failure; J96.01 Acute respiratory failure with hypoxia; I13.2 Hypertensive heart and chronic kidney disease with heart failure and with stage 5 chronic kidney disease, or end stage renal disease; K76.82 Hepatic encephalopathy; L89.626 Pressure-induced deep tissue damage of left heel; Z99.2 Dependence on renal dialysis; D69.6 Thrombocytopenia, unspecified; I73.9 Peripheral vascular disease, unspecified; D63.8 Anemia in other chronic diseases classified elsewhere; K70.31 Alcoholic cirrhosis of liver with ascites; Z20.822 Contact with and (suspected) exposure to COVID-19; Z98.890 Other specified postprocedural states; F10.90 Alcohol use, unspecified, uncomplicated; Y90.9 Presence of alcohol in blood, level not specified; Z88.0 Allergy status to penicillin; Z87.891 Personal history of nicotine dependence; Z86.19 Personal history of other infectious and parasitic diseases; Z79.899 Other long term (current) drug therapy; N40.0 Benign prostatic hyperplasia without lower urinary tract symptoms; N25.0 Renal osteodystrophy; I95.89 Other hypotension; L85.3 Xerosis cutis; I48.0 Paroxysmal atrial fibrillation; E83.51 Hypocalcemia; E83.39 Other disorders of phosphorus metabolism; B19.20 Unspecified viral hepatitis C without hepatic coma; E88.09 Other disorders of plasma-protein metabolism, not elsewhere classified
CPT/HCPCS: 36415; 71045-TC; 80048-TC; 80076-TC; 80170-TC; 83735-TC; 83880; 84100-TC; 84484-TC; 85027-TC; 85610-TC; 87081-TC; 90935-TC; A4216; A4223; A6213; G0378; J0885; J1580; J1938; J1956; J3430; J3490; J7030; J7050; J7060; P9047